=== PATIENT | female | born 1945 | race Caucasian/White ===

== ENCOUNTER 2022-04-14 16:33 | Observation (INO) | payer MEDICARE, SELFPAY ==
[2022-04-14] VITALS (13 sets, daily range): BP systolic 135–218; BP diastolic 77–125; PULSE 63–91; RESP 16–18; TEMP 36.3–36.7; O2SAT 93–98
--- NOTE | 2022-04-14 17:03 | ECG_ITS ---
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 Measurements Intervals [place] Rate: 85 P: 43 ND: 204 QRS: 75 QRSD: 93 T: 46 QT: 371 QTc: 442 Interpretive Statements SINUS RHYTHM POSSIBLE ANTERIOR MYOCARDIAL INFARCTION , PROBABLY OLD [30 ms Q WAVE IN V3/V4, OR R < 0.2 mV IN V4] INTERPRETATION BASED ON A DEFAULT AGE OF 40 YEARS No previous ECG available for comparison Electronically Signed On 04-15-2022 12:01:59 AIR BATTLE MANAGER by Enedelia Joe M.D. [id number]
--- NOTE | 2022-04-14 17:26 | ED_ITS ---
HPI - Chest Pain General: Chief Complaint: Chest Pain Stated Complaint: Abd pain Time Seen by Provider: 04/14/22 17:26 History of Present Illness: Ms Quarles is a 76-year-old lady with significant past medical history of htn, hld presenting to the emergency department due to abdominal and chest discomfort. She reports onset of abdominal discomfort primarily in the epigastric region a few days ago preceded by having to have a bowel movement after any p.o. intake. Since that time symptoms have persisted though. There is some radiation to the chest and neck. Intensity symptoms at worst is severe however currently mild. Worse with movement and ambulation. No other specific changes in health, exacerbating, or alleviating factors identified. Onset (ago): day(s) Timing of current episode: constant Prior episodes: No Onset: during rest Pain location: substernal Pain radiation: neck, jaw/teeth and other Severity: mild Exacerbating factors: movement and other Review of Systems General: Reports: 10 or more systems reviewed and unremarkable except in HPI and below PFSH ED PFSH: Medical History Abnormal nuclear stress test CAD (coronary artery disease) Chest pain Epigastric pain Family history of ischemic heart disease and other diseases of the circulatory system HTN (hypertension) Positive cardiac stress test Surgical History History of History of surgery on wrist Family History Other CAD (coronary artery disease) Social History Smoking and tobacco status: never smoked Alcohol intake: current Alcohol intake frequency: holidays/special occasions only Alcohol type: beer Physical Exam Const: COMMON NORMALS: alert GENERAL APPEARANCE: cooperative and well developed HENMT: COMMON NORMALS: normocephalic and atraumatic HEAD & SCALP: norm ocephalic and atraumatic Eye: COMMON NORMALS: conjunctivae normal CONJUNCTIVA: Yes conjunctivae normal SCLERA: sclerae normal Neck/C-Spine: COMMON NORMALS: supple GENERAL: Yes trachea midline Resp: COMMON NORMALS: clear to auscultation bilaterally EFFORT & INSPECTION: Yes able to speak in complete sentences AUSCULTATION: clear to auscultation bilaterally Cardio: COMMON NORMALS: regular rate and regular rhythm RATE: regular rate RHYTHM: regular rhythm GI: COMMON NORMALS: Soft to palpation PALPATION: Yes Soft to palpation, Yes Tenderness to palpation present (GI) Details: other, No Guarding due to palpation present (GI) and No Rigid due to palpation Extremity: GENERAL: Yes normal exam except as noted and No edema Neuro: COMMON NORMALS: moves all extremities SENSORIUM/ORIENTATION: Yes alert and No Orientation impaired Psych: COMMON NORMALS: mental status grossly normal and Normal thought process present THOUGHT PROCESS: Normal thought process present Course Vital Signs: Vital signs: Vital Signs Temperature 98.1 F 04/17/22 12:00 Pulse Rate 80 04/17/22 11:12 Respiratory Rate 23 H 04/17/22 12:00 Blood Pressure 135/58 04/17/22 12:00 Pulse Oximetry 94 04/17/22 11:12 Oxygen Delivery Me thod 04/17/22 11:09 MDM - Chest Pain Medical Decision Making 76-year-old lady presenting with epigastric first chest pain. Concerning radiation and new persistence. EKG shows sinus rhythm, AV block, nonspecific ST segment abnormalities, no STEMI. No leukocytosis and hemoglobin is normal. Unremarkable electrolyte panel. 2- hour delta troponin negative. Chest x-ray with no lobar consolidation or pneumothorax. CT abdomen and pelvis negative for acute pathology to explain symptoms. Patient given aspirin, GI cocktail, and medication for blood pressure without significant improvement. Patient is not low risk by heart score for chest pain. The results of ED evaluation were discussed with the patient including plan for admission due to requirement for level of care not available if discharged to prevent significant worsening/deterioration. Patient agreeable with plan. Discussed with hospitalist service who was agreeable to admit patient. Medical Records I reviewed the patient's medical records. Lab Data I reviewed the patient's lab results. : 04/17/22 04:32 04/17/22 04:32 Radiology Impressions Chest X-Ray 04/14/22 17:38 IMPRESSION: Emphysematous change, interstitial prominence, and right basilar airspace disease. Abdomen/Pelvis CT 04/14/22 18:10 IMPRESSION: 1. Negative for acute inflammatory process in the abdomen or pelvis. 2. Cardiomegaly. 3. Coronary artery atherosclerotic calcifications. 4. Several splenic cysts. 5. Bilateral renal cysts, negative for follow-up advised. 6. Cholelithiasis. 7. Constipation. COMMENTS: Consistent with the [place] [employer]'s Incidental Findings Committee white paper (J Am Kannan Radiol 2018): Any incidental renal lesion less than 1 cm or classified as too small to characterize, or any incidental cystic renal lesion characterized as simple-appearing, is likely benign. No follow-up imaging is recommended for these lesions per consensus recommendations based on imaging criteria. Gallbladder Ultrasound 04/15/22 08:00 Impression: 1. Cholelithiasis. 2. Simple right renal cyst. Laboratory Results WBC 6.7 10^3/uL (4.0-10.0) 04/14/22 17: RBC 4.03 10^6/uL (4.1-5.3) L 04/14/22 17: Hgb 12.4 g/dL (11.5-15.3) 04/14/22 17: Hct 38.2 % (37.0-47.0) 04/14/22 17: MCV 94.8 fl (81-99) 04/14/22 17: MCH 30.8 pg (28.0-34.0) 04/14/22 17:22 MCHC 32.5 g/dL (30.0-36.0) 04/14/22 17: RDW 12.3 % (12.1-15.1) 04/14/22 17: Plt Count 272 10^3/cmm (130-400) 04/14/22 17:22 MPV 9.4 fL (7.4-10.4) 04/14/22 17: Neut % (Auto) 65.3 % 04/14/22 17:22 Lymph % (Auto) 23.8 % 04/14/22 17:22 [place] % (Auto) 7.5 % 04/14/22 17:22 Eos % (Auto) 2.2 % 04/14/22 17: Baso % (Auto) 0.9 % 04/14/22 17:22 Neut # (Auto) 4.36 10^3/uL (1.8-7.7) 04/14/22 17:22 Lymph # (Auto) 1.6 10^3/uL (0.8-4.8) 04/14/22 17:22 [place] # (Auto) 0.5 10^3/uL (0.2-0.9) 04/14/22 17:22 Eos # (Auto) 0.2 10^3/uL (0.0-0.8) 04/14/22 17:22 Baso # (Auto) 0.1 10^3/uL (0.0-0.1) 04/14/22 17:22 Nucleated RBC % (auto) 0 % 04/14/22 17:22 Nucleated RBCs # 0.0 /100WBC 04/14/22 17:22 Sodium 136 mmol/L (136-145) 04/14/22 17:22 Potassium 4.1 mmol/L (3.5-5.1) 04/14/22 17:22 Chloride 102 mmol/L (98-107) 04/14/22 17:22 Carbon Dioxide 24 mmol/L (22-29) 04/14/22 17:22 Anion Gap 14.1 (5-19) 04/14/22 17:22 BUN 29 mg/dL (8-23) H 04/14/22 17:22 Creatinine 0.6 mg/dL (0.5-0.9) 04/14/22 17:22 GFR Calculation Not Reportable 04/14/22 17:22 Glucose 83 mg/dL (65-115) 04/14/22 17:22 Calculated Osmolality 287 mOsm/kg (285-295) 04/14/22 17:22 Lactic Acid 1.0 mmol/L (0.5-2.2) 04/14/22 17: Calcium 9.4 mg/dL (8.5-10.5) 04/14/22 17:22 Total Bilirubin 0.2 mg/dL (0.15-1.2) 04/14/22 17:22 AST 14 U/L (0-32) 04/14/22 17:22 ALT 11 U/L (0-33) 04/14/22 17:22 Alkaline Phosphatase 106 U/L (35-105) H 04/14/22 17:22 Troponin T Baseline 20 ng/L (0-10) H 04/14/22 17:22 Troponin T 120 Minute 22.00 ng/L (0-10) H 04/14/22 19:16 Delta Troponin T 2.00 ABS# (0-10) 04/14/22 19:16 Total Protein 7.4 g/dL (6.6-8.7) 04/14/22 17:22 Albumin 4.2 g/dL (3.5-5.2) 04/14/22 17:22 Globulin 3.2 g/dL (1.3-4.6) 04/14/22 17:22 Lipase 21 U/L (13-60) 04/14/22 17:22 Urine Color Yellow (Yellow) 04/14/22 19:00 Urine Appearance Clear (CLEAR) 04/14/22 19:00 Urine pH 5 (5-7) 04/14/22 19:00 Ur Specific [place] 1.020 (1.005-1.030) 04/14/22 19:00 Urine Protein Neg (Negative) 04/14/22 19:00 Urine Glucose (UA) Norm (Normal) 04/14/22 19:00 Urine Ketones Negative (Negative) 04/14/22 19:00 Urine Blood Neg (Negative) 04/14/22 19:00 Urine Nitrate Negative (Negative) 04/14/22 19:00 Urine Bilirubin Neg (Negative) 04/14/22 19:00 Urine Urobilinogen Norm mg/dL (Negative) 04/14/22 19:00 Ur Leukocyte Esterase Negative (Negative) 04/14/22 19:00 Discharge Plan Discharge Patient Disposition: Placed in Observation Admit Provider: Kalpesh George Clinical Impression: Chest pain Coding Level of Care Code ED Wireless Sales Representative for Trent Velazquez
[2022-04-14 17:37] LABS: Basophils # 0.1 10^3/uL (0.0-0.1); Basophils % 0.9 %; Eosinophils # 0.2 10^3/uL (0.0-0.8); Eosinophils % 2.2 %; Hematocrit 38.2 % (37.0-47.0); Hemoglobin 12.4 g/dL (11.5-15.3); Lymphocytes # 1.6 10^3/uL (0.8-4.8); Lymphocytes % 23.8 %; Mean Corpuscular HGB Conc 32.5 g/dL (30.0-36.0); Mean Corpuscular Hemoglobin 30.8 pg (28.0-34.0); Mean Corpuscular Volume 94.8 fl (81-99); Mean Platelet Volume 9.4 fL (7.4-10.4); Monocytes # 0.5 10^3/uL (0.2-0.9); Monocytes % 7.5 %; Neutrophils # 4.36 10^3/uL (1.8-7.7); Neutrophils % 65.3 %; Nucleated Red Blood Cells % 0 %; Platelet Count 272 10^3/cmm (130-400); Red Blood Count 4.03 10^6/uL (4.1-5.3); Red Cell Distribution Width 12.3 % (12.1-15.1); White Blood Count 6.7 10^3/uL (4.0-10.0)
--- NOTE | 2022-04-14 17:38 | XRR_ITS ---
PROCEDURE INFORMATION: Exam: XR Chest Exam date and time: 04/14/2022 6:55 PM Age: 76 years old Clinical indication: Angina pectoris; Patient HX: Pain under breast and goes up, 3 days abd pain; Additional info: Chest pain TECHNIQUE: Imaging protocol: Radiologic exam of the chest. Views: 1 view. COMPARISON: CT abdomen pelvis w con* [id number] 04/14/2022 6:35 PM FINDINGS: Lungs: Emphysematous change, interstitial prominence, and right basilar airspace disease. Pleural spaces: No significant pleural effusion. Heart/Mediastinum: Cardiac silhouette accentuated by epicardial fat. Bones/joints: Osteopenia and degenerative change. XR/XR chest 1V portable [id number] IMPRESSION: Emphysematous change, interstitial prominence, and right basilar airspace disease.
[2022-04-14 18:06] LABS: Troponin(5th) Baseline 20 ng/L (0-10)
[2022-04-14 18:08] LABS: Alanine Aminotransferase 11 U/L (0-33); Albumin Level 4.2 g/dL (3.5-5.2); Alkaline Phosphatase 106 U/L (35-105); Anion Gap 14.1 (5-19); Aspartate Amino Transferase 14 U/L (0-32); Blood Urea Nitrogen 29 mg/dL (8-23); Calcium 9.4 mg/dL (8.5-10.5); Carbon Dioxide 24 mmol/L (22-29); Chloride 102 mmol/L (98-107); Globulin 3.2 g/dL (1.3-4.6); Glucose 83 mg/dL (65-115); Lipase 21 U/L (13-60); Osmolality Calculated 287 mOsm/kg (285-295); Potassium 4.1 mmol/L (3.5-5.1); Sodium 136 mmol/L (136-145); Total Bilirubin 0.2 mg/dL (0.15-1.2); Total Protein 7.4 g/dL (6.6-8.7)
--- NOTE | 2022-04-14 18:10 | CTR_ITS ---
PROCEDURE INFORMATION: Exam: CT Abdomen And Pelvis With Contrast Exam date and time: 04/14/2022 6:35 PM Age: 76 years old Clinical indication: Abdominal pain; Epigastric; Prior surgery; Surgery type: C section; Additional info: Epigastric and ruq pain TECHNIQUE: Imaging protocol: Computed tomography of the abdomen and pelvis with contrast. Radiation optimization: All CT scans at this facility use at least one of these dose optimization techniques: automated exposure control; mA and/or kV adjustment per patient size (includes targeted exams where dose is matched to clinical indication); or iterative reconstruction. Contrast material: OMNI 350; Contrast volume: 100 ml; Contrast route: INTRAVENOUS (IV); COMPARISON: No relevant prior studies available. RADIATION DOSE METRICS: Total DLP (mGy-cm): 389.31 FINDINGS: Heart: Cardiomegaly. Coronary artery atherosclerotic calcifications. Liver: Normal. No mass. Gallbladder and bile ducts: Cholelithiasis. Pancreas: Normal. No ductal dilation. Spleen: Several splenic cysts. Adrenal glands: Normal. No mass. Kidneys and ureters: Bilateral renal cysts, negative for follow-up advised. Stomach and bowel: Constipation. Appendix: No evidence of appendicitis. Intraperitoneal space: Unremarkable. No free air. No significant fluid collection. Vasculature: Unremarkable. No abdominal aortic aneurysm. Lymph nodes: Unremarkable. No enlarged lymph nodes. Urinary bladder: Unremarkable as visualized. Reproductive: Unremarkable as visualized. Bones/joints: Unremarkable. No acute fracture. Soft tissues: Unremarkable. CT/CT abdomen pelvis w con* [id number] IMPRESSION: 1. Negative for acute inflammatory process in the abdomen or pelvis. 2. Cardiomegaly. 3. Coronary artery atherosclerotic calcifications. 4. Several splenic cysts. 5. Bilateral renal cysts, negative for follow-up advised. 6. Cholelithiasis. 7. Constipation. COMMENTS: Consistent with the [employer]'s Incidental Findings Committee white paper (J Am Kannan Radiol 2018): Any incidental renal lesion less than 1 cm or classified as too small to characterize, or any incidental cystic renal lesion characterized as simple-appearing, is likely benign. No follow-up imaging is recommended for these lesions per consensus recommendations based on imaging criteria.
[2022-04-14] MEDS: iohexol 350 mg/mL 500 mL Btl (per mL) IV (18:42)
[2022-04-14] MEDS: aspirin 81 mg Chew Tablet 324 MG PO (19:12)
[2022-04-14] MEDS: lidocaine 2% viscous 15 ML, aluminum-mag hydrox-simethicon 30 ML, sucralfate oral liq 1 GM PO (19:13)
[2022-04-14] MEDS: labetalol 5 mg/mL SDV 20mL 20 MG IVP (19:40)
[2022-04-14 19:50] LABS: Add Urine Microscopic? NO; Charge for UA Resulting for Rev
[2022-04-14 20:35] LABS: Bilirubin Urine Neg (Negative); Blood Urine Neg (Negative); Glucose Urine UA Norm (Normal); Ketones Urine Negative (Negative); Leukocyte Esterase Urine Negative (Negative); Nitrate Urine Negative (Negative); Protein Urine Neg (Negative); Urine Appearance Clear (CLEAR); Urine Color Yellow (Yellow); Urobilinogen Urine Norm (Negative); pH Urine 5 (5-7)
--- NOTE | 2022-04-14 21:04 | P.HP_ITS ---
Providers/Chief Complaint Primary Care Provider: Citlali Elizabeth DO Chief Complaint: Abd pain History of Present Illness Pleasant 76-year-old lady with history of hypertension, family history of CAD, came to ER for evaluation of epigastric pain she has had for the past 3 days or so which came on mostly unprovoked, but she has been getting it when walking. Came in to be assessed. Denies any radiation. Pain is alleviated at rest, although today did not entirely go away with rest. In the ER she was noted hypertensive initially up to 218/125. Received labetalol, GI cocktail, aspirin. Blood pressure improved, currently 135/77. CBC, CMP otherwise unremarkable, although BUN mildly high at 29. Alk phos minimally elevated 106. EKG with sinus rhythm. Baseline troponin 20, troponin 22. Lipase 21. UA unremarkable. She denies any NSAID use. She has occasional beer once in a while, no EtOH on daily basis. CT abdomen pelvis with cardiomegaly, several splenic cysts. Bilateral renal cysts, negative for follow-up advised. Cholelithiasis. Constipation. She denies constipation, states she has had 2 soft to loose bowel movements today. She has been having nausea which has been triggered by episodes of the epigastric pain. Observation was requested for completion of cardiac work-up to exclude cardiac etiology and optimization of control of her pain. Review of Systems Const: Denies: fever(s), chills, body aches or malaise Eyes: Denies: change in vision, eye discomfort or eye redness ENMT: Denies: throat pain, oral sores or ear or mastoid pain Card: Denies: chest pain, edema, pre-syncope or dyspnea on exertion Resp: Denies: dyspnea, productive cough, change in phlegm color or hemoptysis GI: Reports: abdominal pain and nausea; Denies: vomiting, constipation, hematochezia or melena : Denies: flank pain, urinary frequency or hematuria Musc: Denies: back pain, joint swelling or joint redness Skin/Breast: Denies: rash or new lesions Neuro: Denies: headache(s), numbness in extremities, weakness in extremities, dizziness, confusion or seizure-like activity Endo: Denies: polyuria or polydipsia Scotty/Lymph: Denies: easy bleeding or tender lymph nodes All/Imm: Denies: urticaria or tongue swelling Medications/Allergies Home Medications Medication Instructions Recorded Confirmed Last Taken Type bupropion HCl 300 mg 24 hr tablet, 300 mg PO DAILY 04/14/22 04/14/22 04/14/22 History extended release Allergies Allergy/AdvReac Type Severity Reaction Status Date / Time No Known Allergies Allergy Verified 04/14/22 17:25 PFSH Acute PFSH: Medical History HTN (hypertension) Surgical History History of History of surgery on wrist Family History Other CAD (coronary artery disease) Social History Smoking and tobacco status: never smoked Alcohol intake: current Alcohol intake frequency: holidays/special occasions only Alcohol type: beer Substance/Drug Use: never Vitals/I&O/Wt Last Vital Signs Temp 97.9 F 04/14/22 18:08 Pulse 71 04/14/22 21:01 Resp 17 04/14/22 21:01 BP 156/89 04/14/22 21:01 Pulse Ox 93 04/14/22 21:01 Weight last 48 hrs Weight 54.431 kg Physical Exam Narrative: Accompanied by family Const: COMMON NORMALS: patient oriented x3 and alert GENERAL APPEARANCE: cooperative ORIENTATION/CONSCIOUSNESS: Yes awake HENMT: COMMON NORMALS: oropharynx normal Neck/C-Spine: COMMON NORMALS: no JVD Resp: COMMON NORMALS: normal respiratory effort and clear to auscultation bilaterally AUSCULTATION: clear to auscultation bilaterally Cardio: COMMON NORMALS: no JVD, regular rhythm, S1 normal heart sound present, S2 normal heart sound present and No murmurs present (Cardio) RHYTHM: regular rhythm HEART SOUNDS: S1 normal heart sound present and S2 normal heart sound present GI: COMMON NORMALS: Normal to inspection, nondistended, normoactive bowel sounds present and Soft to palpation PALPATION: Yes Soft to palpation and Yes Tenderness to palpation present (GI) Details: other (Epigastric, RUQ) Extremity: COMMON NORMALS: no joint enlargement and no pedal edema Neuro: COMMON NORMALS: patient oriented x3 and moves all extremities SENSORIUM/ORIENTATION: Yes alert Skin: COMMON NORMALS: no rashes or lesions noted GENERAL SKIN EXAM: no rashes or lesions noted Data : 04/14/22 17:22 04/14/22 17:22 A&P Assessment and plan (1) Epigastric pain: With exertional component, epigastric pain getting worse with walking. Accompanied by nausea. With history of hypertension in her and history of CAD in the family, atherosclerotic calcifications, cardiomegaly on CT, concern in ER was to exclude cardiac etiology of the pain. Complete troponin EKG series. Assess with TTE. Stress test tomorrow. However, discussed with her other possible etiologies including PUD. Does also have noted tenderness in right upper quadrant, as well as some cholelithiasis noted on CT. Has never had an EGD, at some point would benefit, possibly with referral after discharge. Occasionally has some alcohol. Does not take NSAIDs. Never smoker. In the meantime discussed with her starting PPI. Additionally will assess with gallbladder ultrasound. She would like to try some liquid diet/ice cream tonight. Discussed with her to avoid caffeine. N.p.o. after midnight for stress test tomorrow. Plan Cardiomegaly: Incidentally noted on CT. Does not have symptoms of heart failure. Assess with TTE. Coronary artery atherosclerotic calcifications: Also incidentally on CT. Several splenic cyst: Incidentally noted on CT. Bilateral renal cysts: Incidentally noted on CT. Should follow-up after disch arge for reassessment. Constipation: Reported, however, she denies, states has been having soft/loose bowel movements including had 2 soft/semiliquid bowel movements today. Consider adding fiber once he resumes oral intake. Monitor for further changes in bowel consistency. Attestations Medical Necessity Statement*: Place in observation for further assessment and management of epigastric pain and lady with cardiac risk factors. Coding Level of Care Code Acute Family Consumer Scientist for Chg Fwd Diagnoses Epigastric pain R10.13
--- NOTE | 2022-04-14 21:32 | PC.NURSE ---
Report called to HAIDER Dalton on the floor and patient prepared for transport to the floor.
[2022-04-14] MEDS: pantoprazole DR 40 mg Tablet PO (22:20)
[2022-04-14 23:57] LABS: Troponin 5 6HR 30.54 ng/L (0-10)
[2022-04-15] VITALS (14 sets, daily range): BP systolic 105–187; BP diastolic 61–81; PULSE 63–89; RESP 16–18; TEMP 36.3–36.4; O2SAT 94–98
[2022-04-15 00:16] LABS: Troponin 5 6HR Delta 10.54 ng/L (0-12)
[2022-04-15] MEDS: sucralfate 1 gm/10 mL Oral Liq UDC PO ×4 (04:19→23:38)
[2022-04-15] MEDS: nitroglycerin 0.4 mg sublingual Tablet SUBLINGUAL (04:19)
[2022-04-15] MEDS: HYDROmorphone 1 mg/mL INJ 1 mL 0.4 MG IVP ×3 (04:35→23:08)
--- NOTE | 2022-04-15 04:38 | PC.NURSE ---
Pain: Pt woke c/o pain pointing to the epigastric area, rating it 10/10. Non-radiating, no SOB, BP 182/80 but other VS WNL. Physician notified and orders received. Carafate given, nitro given X1 - pain reduced to a 5/10 and BP recheck showed 123/73. Dilaudid given and pt said pain went away completely, now rating it 0/10.
[2022-04-15 05:28] LABS: Basophils # 0.1 10^3/uL (0.0-0.1); Basophils % 0.6 %; Eosinophils # 0.2 10^3/uL (0.0-0.8); Eosinophils % 1.9 %; Hematocrit 38.1 % (37.0-47.0); Hemoglobin 12.3 g/dL (11.5-15.3); Lymphocytes # 1.3 10^3/uL (0.8-4.8); Lymphocytes % 16.5 %; Mean Corpuscular HGB Conc 32.3 g/dL (30.0-36.0); Mean Corpuscular Hemoglobin 30.4 pg (28.0-34.0); Mean Corpuscular Volume 94.3 fl (81-99); Mean Platelet Volume 10.2 fL (7.4-10.4); Monocytes # 0.5 10^3/uL (0.2-0.9); Monocytes % 6.4 %; Neutrophils # 5.77 10^3/uL (1.8-7.7); Neutrophils % 74.1 %; Nucleated Red Blood Cells % 0 %; Platelet Count 233 10^3/cmm (130-400); Red Blood Count 4.04 10^6/uL (4.1-5.3); Red Cell Distribution Width 12.4 % (12.1-15.1); White Blood Count 7.8 10^3/uL (4.0-10.0)
[2022-04-15 05:54] LABS: Alanine Aminotransferase 10 U/L (0-33); Albumin Level 4.3 g/dL (3.5-5.2); Alkaline Phosphatase 97 U/L (35-105); Aspartate Amino Transferase 13 U/L (0-32); Blood Urea Nitrogen 23 mg/dL (8-23); Calcium 9.1 mg/dL (8.5-10.5); Carbon Dioxide 25 mmol/L (22-29); Chloride 101 mmol/L (98-107); Globulin 3.1 g/dL (1.3-4.6); Glucose 88 mg/dL (65-115); Osmolality Calculated 287 mOsm/kg (285-295); Sodium 137 mmol/L (136-145); Total Bilirubin 0.3 mg/dL (0.15-1.2); Total Protein 7.4 g/dL (6.6-8.7)
[2022-04-15 06:22] LABS: Anion Gap 14.5 (5-19); Potassium 3.5 mmol/L (3.5-5.1)
--- NOTE | 2022-04-15 06:24 | ECG_ITS ---
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 Interpretive Statements NAME OF STUDY: LEXISCAN SESTAMIBI STRESS TEST INDICATION: EPIGASTRIC PAIN/CAD RISK FACTORS, PROCEDURE: At the baseline, the EKG revealed normal sinus rhythm with poor R wave progression. Nonspecific T wave changes. Possible old inferior wall LA. The baseline heart was 76 bpm with a blood pressue of 146/74 mm of Hg Lexiscan was infused over a period of 20 seconds. A total of 0.4 milligrams of Lexiscan was infused. The stress phase was continued for a total of 5 minutes. Heart rate at the end of the stress phase was 94 bpm with a blood pressure 137/81 mm of Hg. The EKG at the peak infusion revealed no significant changes. Sestamibi was injected 20 seconds after the Lexiscan infusion. Heart rate at the end of the recovery phase was 90 bpm with a blood pressure of 126/81 mm of Hg. CONCLUSION: 1. No significant EKG changes with the LexiScan infusion 2. No LexiScan induced chest pain or cardiac arrhythmia 3. Normal blood pressure and heart rate response 4. Sestamibi/sestamibi perfusion scan pending; see separate report. Electronically Signed On 04-18-2022 8:54:12 TEACHER EDUCATION DIRECTOR by Char Mejia M.D. [id number]
[2022-04-15] MEDS: regadenoson 0.4 Mg/5 ml Syringe IVP (07:24)
[2022-04-15] MEDS: ondansetron 2 mg/ML SDV 2 mL 4 MG IVP (07:47)
--- NOTE | 2022-04-15 08:00 | US_ITS ---
WS: [id number] Gallbladder and right upper quadrant ultrasound, 04/15/2022 Clinical Data: epigastric, RUQ tender, cholelithiasis Comparison: None. Findings: The gallbladder shows two stones. The wall measures 0.2 cm with no pericholecystic fluid. The common bile duct is 0.3 cm and there are no intrahepatic ductal abnormalities. Liver shows no cysts, masses or dilated intrahepatic ducts. The pancreas is obscured by overlying bowel gas but no cyst, pseudocyst, or evidence of pancreatitis is noted. Right kidney measures 9.7 cm and there is a simple cyst measuring 2.27 x 2.57 x 2.66 cm. No masses or hydronephrosis can be seen The aorta and inferior vena cava show no vascular abnormalities. US/US gall bladder [id number] Impression: 1. Cholelithiasis. 2. Simple right renal cyst.
--- NOTE | 2022-04-15 08:00 | USCV_ITS ---
Stella Quarles Age: 76 Gender: F : 1945 Exam Date: 04/15/2022 08:42 Ordering Phys: Kalpesh George MD Technologist: CORY Exam Location: [facility] – [place], [place] Indication: CARDIOMEGALY BP: 123 / 73 HR: 68 Rhythm: Sinus Technical Quality: Adequate MEASUREMENTS (Male / Female) Normal Values 2D ECHO LVOT Diameter 2.0 cm LV Ejection Fraction MOD 2C 61.0 % LV Ejection Fraction 2C AL 61.2 % LA Diameter 3.1 cm LA Width 2.9 cm LA Height 4.9 cm RA Width 2.9 cm RA Height 4.6 cm Aorta at Sinotubular Diameter 1.8 cm IVC Diameter 0.8 cm M-MODE Aortic Annulus Diameter 3.5 cm LA Ao Ratio MM 0.9 MV E Point Septal Separation 0.4 cm DOPPLER AV Peak Velocity 94.0 cm/s LVOT Peak Velocity 90.0 cm/s AV Area Cont Eq vti 3.6 cm squared AV Area Cont Eq pk 3.1 cm squared MV Peak Velocity 126.0 cm/s MV Area PHT 2.8 cm squared Mitral E to A Ratio 0.7 MV E' Velocity 38.5 cm/s Mitral E to MV E' Ratio 14.0 Mitral E to LV E' Lateral Ratio 13.8 Mitral E to LV E' Septal Ratio 14.6 TR Peak Velocity 202.3 cm/s TR Peak Gradient 16.4 mmHg TR Mean Velocity 174.1 cm/s TR Mean Gradient 12.3 mmHg TR Velocity Time Integral 71.8 cm TV Peak E Velocity 44.0 cm/s Right Atrial Pressure 3.0 mmHg Pulmonary Artery Systolic Pressu 19.4 mmHg PV Peak Velocity 80.0 cm/s RV Acceleration Time 0.1 s RV Ejection Time 0.3 s RV AcT/ET 0.3 FINDINGS Left Ventricle Normal left ventricular size, systolic function and mildly increased wall thickness, with no regional wall motion abnormalities. Left ventricular ejection fraction is estimated at 70 %. Grade I diastolic dysfunction (abnormal relaxation filling pattern), normal to mildly elevated filling pressures. Right Ventricle Normal right ventricular size and systolic function. Right ventricular systolic pressure 19.4 mmHg. Right Atrium Normal right atrial size. Left Atrium Upper normal left atrial size. Mitral Valve Mild mitral annular calcification. Structurally normal mitral valve. No mitral valve stenosis. Mild mitral valve regurgitation. Aortic Valve Structurally normal trileaflet aortic valve. No aortic valve stenosis. Trace aortic valve regurgitation. Tricuspid Valve Structurally normal tricuspid valve. No tricuspid valve stenosis. Trace tricuspid valve regurgitation. Pulmonic Valve Structurally normal pulmonic valve. No pulmonary valve stenosis. Trace pulmonary valve regurgitation. Pericardium No pericardial effusion. Aorta Normal size aortic root and proximal ascending aorta. IVC Normal IVC dimension with >50% respiratory change of the inferior vena cava. CONCLUSIONS 1. Normal left ventricular size, systolic function and mildly increased wall thickness, with no regional wall motion abnormalities. Left ventricular ejection fraction is estimated at 70 %. Grade I diastolic dysfunction (abnormal relaxation filling pattern), normal to mildly elevated filling pressures. 2. Normal right ventricular size and systolic function. 3. Trace aortic valve regurgitation. 4. No prior similar studies to compare. Enedelia Joe MD (Electronically Signed) Final Date: 15 April 2022 17:18 S
--- NOTE | 2022-04-15 09:00 | NMCV_ITS ---
NM mary beth perf SPECT r/s* [id number] Stella Quarles Age: 76 Gender: F : 1945 Exam Date: 04/15/2022 06:52 Ordering Phys: Kalpesh George MD Technologist: TOMASZ Meade Exam Location: [facility] Indications: CHEST PAIN STRESS TEST Please see separate stress test report in [facility] for full findings IMAGE PROTOCOL Rest/Stress 1 Lexiscan Day Radiopharmaceutical Dose (mCi) Administration Site Administered by Rest: Tc-99m 10.4 IV TOMASZ Ramirez Sestamibi Stress:Tc-99m 32.5 IV TOMASZ Ramirez Sestamibi Rest: 15-Apr-2022 60 Discovery 630 Stress: 15-Apr-2022 30 Discovery 630 0.4mg Lexiscan. Images obtained in supine and prone position. SPECT RESULTS Technical Quality: Excellent Raw Data Analysis: Normal Image Corrections: No attenuation or motion correction applied Summed Stress Score: 10 Summed Rest Score: 3 Summed Difference Score: 7 PERFUSION FINDINGS Moderate area of moderately decreased tracer uptake in the proximal, mid and apical inferior, mid inferolateral and apical lateral regions. Significant reversibility was noted in these regions at rest.SPECT images demonstrate homogeneous tracer distribution throughout the myocardium. FUNCTIONAL RESULTS (calculated via Gated SPECT) Stress Image LV EF (%): 78 Stress EDV (mL):45 TID: 0.85 Stress ESV (mL):10 FUNCTIONAL FINDINGS: LV wall motion analysis revealing no gross wall motion abnormalities. IMPRESSIONS 1. Myocardial perfusion imaging revealing moderate area of moderately decreased tracer uptake in the inferior, inferolateral and apical regions with significant reversibility, suggesting ischemia , predominantly in the distribution of the right coronary artery with some involvement of the circumflex artery. 2. Normal LV ejection fraction of 78%. 3. LV wall motion analysis revealing no gross wall motion abnormalities. 4. Normal LV volume No similar previous studies are available for comparison Dr Char Mejia MD FAC (Electronically Signed) Final Date: 15 April 2022 12:30 S
[2022-04-15] MEDS: buPROPion XL (24 HR) 300 mg Tablet PO (09:50)
[2022-04-15] MEDS: amlodipine 5 mg Tablet PO (09:51)
[2022-04-15] MEDS: pantoprazole DR 40 mg Tablet PO (09:51)
--- NOTE | 2022-04-15 11:55 | PC.CHAP ---
Pastoral Care Encounter/Spiritual Assessment Type of Contact [] Declined circular knife cutter machine visit [] Patient/Family/Request visit [] Outpatient visit [] Follow-up visit [] Physician referral [] Code/Alert [x] Routine visit [] Staff referral [] Actively dying [] Patient sleeping [] Family support [] [x] Out of room [] Palliative care [] [] Receiving care in room [] Pre-surgical visit [] Trauma [] Long length of stay [] ICU visit [] Other: Relational/Emotional Strength [] Patient feels connected with others/family/visitors/staff [] Distress [] Loneliness/isolation [] Abandonment Spirituality of Patient [] Person of Nicolasa [] Attends Samaritan of their [place] [] Believes in Prayer [] Reads Bible or Scientologist materials [] There are Spiritual issues to be addressed Country Director Interventions [] Prayer [] Active listening [] Non-anxious presence [] Spiritual/emotional support [] Crisis/trauma care [] Spiritual counseling [] Bereavement support [] Provided bereavement packet [] Provided Bible/devotional materials [] Provided toy/stuffed animal, coloring book to patient or family member [] Provided Communion [] Anointing/[place] [] Salvation [] Completed spiritual assessment [] Other: Impact on Illness or Injury [] Angry [] Fearful [] Anxious [] Often cries [] Exhaustion [] Unable to work [] Unable to attend hoahaoism [] Unable to walk/stand [] Unable to read [] Unable to drive [] Unable to eat/drink [] Unable to sleep [] Unable to be with family [] Patient intubated [] Other: Summary Time spent with patient
--- NOTE | 2022-04-15 14:13 | PM.PN ---
Subjective Subjective: Positive stress test, asymptomatic, eating low-fat diet, Dr. White consulted Patient is stating her family lives [address] away and she has allowed me to talk to her sister Vitals/I&O/Wt Last Vital Signs Temp 97.4 F L 04/15/22 08:00 Pulse 68 04/15/22 11:45 Resp 16 04/15/22 11:45 BP 131/67 04/15/22 11:45 Pulse Ox 97 04/15/22 11:45 O2 Del Method 04/15/22 11:45 04/14/22 04/15/22 04/15/22 22:59 06:59 14:59 Intake Total 480 / 480 500 / 980 Output Total 300 / 300 Balance 480 / 480 200 / 680 Weight last 48 hrs Weight 54.431 kg Physical Exam Narrative: Awake and alert S1, S2 Abdomen soft Looks euvolemic No right upper quadrant tenderness Currently on room air Anxious appearing Data : 04/15/22 05:16 04/15/22 05:16 A&P Assessment and plan (1) Epigastric pain: (2) Chest pain: (3) Positive cardiac stress test: Plan Dr. White consulted for positive stress test Currently asymptomatic Hemodynamically stable Blood pressure has improved Will need optimization of antihypertensive regimen Patient has multiple risk factors for coronary disease such as family history, smoking, We will keep her n.p.o. 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 after midnight We will follow-up with cardiology recommendations Full code Positive gallstones, Pollack sign negative, that is why I have recommended low-fat diet, 12 weeks after her angiogram she might need elective gallbladder surgery Attestations Medical Necessity Statement*: Continue medical management Time Spent in Patient Care: 30 Coding Level of Care Code Acute Real Estate Site Analyst for Chg Fwd Diagnoses Epigastric pain R10.13 Chest pain R07.9 Positive cardiac stress test R94.39
--- NOTE | 2022-04-15 16:20 | PM.CONSULT ---
Providers/Reason For Consult Consulting Physician/Specialty*: Dr. Joe, Cardiology Reason for Consult*: Abnormal stress test Attending Physician: Patrizia Lo MD Primary Care Provider: Citlali Elizabeth DO History of Present Illness History of Present Illness Stella Quarles is a 76 year old female with past medical history of hypertension, former smoker (used natural cigarettes 2-3 /day on and off over years and quit 3 years back), family history of heart problems (sister in her 70's with massive NV and , mother with CHF and father with multiple stents starting in his early 70's) and anxiety/depression. She came to ER for evaluation of epigastric/ right UQ pain for the past 3 days starting out after eating described as deep ache and then with some radiation to right side of her chest and recently she has been getting it when walking as well.? Pain is relieved with resting after 15-20 minutes. EKG with sinus rhythm with poor anterior R wave progression.? Baseline troponin 20, troponin [address] abdomen pelvis with cardiomegaly, several splenic cysts.? Bilateral renal cysts and ?cholelithiasis.? She underwent stress test that showed moderate area of moderately decreased tracer uptake in the inferior, inferolateral and apical regions with significant reversibility, suggesting ischemia , predominantly in the distribution of the right coronary artery with some involvement of the ?circumflex artery. Review of Systems Const: Denies: fever(s), chills, body aches or malaise Eyes: Denies: change in vision, eye discomfort or eye redness ENMT: Denies: throat pain, oral sores or ear or mastoid pain Card: Reports: chest pain (atypical); Denies: edema, pre-syncope or dyspnea on exertion Resp: Denies: dyspnea, productive cough, change in phlegm color or hemoptysis GI: Reports: abdominal pain (epigastric/RUQ) and nausea; Denies: vomiting, constipation, hematochezia or melena : Denies: flank pain, urinary frequency or hematuria Musc: Denies: back pain, joint swelling or joint redness Skin/Breast: Denies: rash or new lesions Neuro: Denies: headache(s), numbness in extremities, weakness in extremities, dizziness, confusion or seizure-like activity Endo: Denies: polyuria or polydipsia Scotty/Lymph: Denies: easy bleeding or tender lymph nodes All/Imm: Denies: urticaria or tongue swelling Medications/Allergies Home Medications Medication Instructions Recorded Confirmed Last Taken Type bupropion HCl 300 mg 24 hr tablet, 300 mg PO DAILY 04/14/22 04/14/22 04/14/22 History extended release Allergies Allergy/AdvReac Type Severity Reaction Status Date / Time No Known Allergies Allergy Verified 04/14/22 17:25 Current Medications Generic Name Dose Route Start Last Admin Trade Name Freq PRN Reason Stop Dose Admin Amlodipine Besylate 5 mg 04/15/22 09:00 04/15/22 09:51 Amlodipine 5 Mg Tablet PO 5 mg DAILY LOR Administration Bupropion HCl 300 mg 04/15/22 09:00 04/15/22 09:50 Bupropion Xl (24 Hr) 300 Mg Tablet PO 300 mg DAILY LOR Administration Hydromorphone HCl 0.4 mg 04/15/22 04:06 04/15/22 10:36 Hydromorphone 1 Mg/Ml Inj 1 Ml IVP 0.4 mg Q4H PRN Administration PAIN Nitroglycerin 0.4 mg 04/15/22 04:06 04/15/22 04:19 Nitroglycerin 0.4 Mg Sublingual Tablet SUBLINGUAL 0.4 mg Q5M PRN Administration CHEST PAIN Ondansetron HCl 4 mg 04/15/22 06:26 04/15/22 07:47 Ondansetron 2 Mg/Ml Sdv 2 Ml IVP 4 mg Q2M PRN Administration NAUSEA Pantoprazole Sodium 40 mg 04/14/22 21:48 04/15/22 09:[address] 40 Mg Tablet PO 40 mg DAILY LOR Administration Sucralfate 1 gm 04/15/22 04:10 04/15/22 09:50 Sucralfate 1 Gm/10 Ml Oral Liq Udc PO 1 gm AC&BEDTIME LOR Administration PFSH Acute PFSH: Medical History (Updated 04/15/22 @ 21:08 by Enedelia Joe MD) Family history of ischemic heart disease and other diseases of the circulatory system HTN (hypertension) Surgical History History of History of surgery on wrist Family History Other CAD (coronary artery disease) Social History Smoking and tobacco status: never smoked Alcohol intake: current Alcohol intake frequency: holidays/special occasions only Alcohol type: beer Substance/Drug Use: never Vitals/I&O/Wt Last Vital Signs Temp 97.4 F L 04/15/22 15:47 Pulse 74 04/15/22 15:47 Resp 16 04/15/22 15:47 BP 170/73 04/15/22 15:47 Pulse Ox 98 04/15/22 15:47 O2 Del Method 04/15/22 15:47 04/15/22 04/15/22 04/15/22 06:59 14:59 22:59 Intake Total 500 / 980 Output Total 300 / 300 Balance 200 / 680 Weight last 48 hrs Weight 120 lb Physical Exam Narrative: GENERAL: Averagely built and averagely nourished in no acute distress HEENT: Extraocular movement intact. No pallor or icterus. NECK: central trachea, No JVD, No carotid bruit. CARDIOVASCULAR SYSTEM: S1-S2 regular. No murmur rubs or gallops. RESPIRATORY SYSTEM: Chest clear to auscultation. No wheezes rhonchi or rubs heard. No use of accessory muscles. ABDOMEN: Soft, nontender and nondistended. Normal bowel sounds present. No hepatosplenomegaly appreciated. EXTREMITIES: No cyanosis or clubbing or edema. No signs of chronic venous insufficiency. FIELD CANE SCALER: Patient is alert oriented ?3. No focal neurological deficits. Cranial nerves intact. SKIN: Normal turgor and temperature. No breakdown, rash or nail changes noted. PSYCH: Normal insight and judgment. No suicidal or homicidal ideations. Anxiety+ Data : 04/15/22 05:16 04/15/22 05:16 Other data: TTE (04/15/22) CONCLUSIONS ?1. Normal left ventricular size, systolic function and mildly ?increased wall thickness, with no regional wall motion ?abnormalities. Left ventricular ejection fraction is estimated ?at 70 %. Grade I diastolic dysfunction (abnormal relaxation ?filling pattern), normal to mildly elevated filling pressures. ?2. Normal right ventricular size and systolic function. ?3. Trace aortic valve regurgitation. ?4. No prior similar studies to compare. Lexiscan sestamibi MPI (04/15/22) IMPRESSIONS ?1.? Myocardial perfusion imaging revealing moderate area of moderately ?decreased tracer uptake in the inferior, inferolateral and apical regions with ?significant reversibility, suggesting ischemia , predominantly in the ?distribution of the right coronary artery with some involvement of the ?circumflex artery. ?2.? Normal LV ejection fraction of 78%. ?3.? LV wall motion analysis revealing no gross wall motion abnormalities. ?4.? Normal LV volume ?No similar previous studies are available for comparison A&P Assessment and plan (1) Chest pain: Atypical chest pain (2) Abnormal nuclear stress test: I had a long discussion with patient about her stress test findings. Patient's sister at bedside as well. I offered her the option of medical management and LHC based on medical response vs LHC during this hospitalization. All patient's questions about the procedure, stent longevity, need for repeat stent, type of diet and lifestyle changes that will be needed were answered to the best of my ability Patient eventually decided to proceed with LHC as she is worried about a sudden heart attack and Risks and benefits were discussed with the patients. Alternate management options were discussed with the patient as well. Possible complications including risk of heart attack stroke and , coronary perforation, dissection, arrhythmia, cardiac tamponade in urgent CABG were discussed with the patient as well. -Plan is to proceed for the procedure at the earliest. Greater than 40 minutes spent talking to the patient and family at bed side (3) HTN (hypertension): BP better controlled (4) Family history of ischemic heart disease and other diseases of the circulatory system: Plan Former smoker Consult Attestations Time Spent in Patient Care: Greater than 35 minutes Coding Level of Care Code Acute Pricing Coordinator for Chg Fwd Diagnoses Chest pain R07.9 Abnormal nuclear stress test R94.39 HTN (hypertension) I10 Family history of ischemic heart disease and other diseases of the circulatory system Z82.49
[2022-04-15] MEDS: enoxaparin 40 mg/0.4 mL Syringe SUBCUT (17:16)
[2022-04-15] MEDS: lisinopril 10 mg Tablet PO (17:17)
--- NOTE | 2022-04-15 17:22 | PC.NURSE ---
Patient would like to add, Kylah Hill ( [facility]) [phone] and Taina Her @ [phone] and Alejo Hill [phone] to allow information on her chart
[2022-04-15] MEDS: oxyCODONE 5 mg IR Tab/Cap PO (19:45)
[2022-04-15] MEDS: aspirin 325 mg EC Tablet PO (23:38)
[2022-04-15] MEDS: atorvastatin 40 mg Tablet 20 MG PO (23:38)
[2022-04-15] MEDS: clopidogrel 300 mg Tablet PO (23:39)
[2022-04-16] VITALS (16 sets, daily range): BP systolic 103–122; BP diastolic 45–69; PULSE 67–81; RESP 14–20; TEMP 36.3–36.8; O2SAT 92–96
[2022-04-16 05:49] LABS: Basophils # 0.1 10^3/uL (0.0-0.1); Basophils % 1.1 %; Eosinophils # 0.1 10^3/uL (0.0-0.8); Eosinophils % 2.6 %; Hematocrit 36.4 % (37.0-47.0); Hemoglobin 11.6 g/dL (11.5-15.3); Lymphocytes # 1.7 10^3/uL (0.8-4.8); Mean Corpuscular HGB Conc 31.9 g/dL (30.0-36.0); Mean Corpuscular Hemoglobin 30.9 pg (28.0-34.0); Mean Corpuscular Volume 97.1 fl (81-99); Mean Platelet Volume 9.4 fL (7.4-10.4); Monocytes # 0.5 10^3/uL (0.2-0.9); Monocytes % 9.1 %; Neutrophils # 2.99 10^3/uL (1.8-7.7); Neutrophils % 55.6 %; Nucleated Red Blood Cells % 0 %; Platelet Count 238 10^3/cmm (130-400); Red Blood Count 3.75 10^6/uL (4.1-5.3); Red Cell Distribution Width 12.5 % (12.1-15.1); White Blood Count 5.4 10^3/uL (4.0-10.0)
[2022-04-16 06:24] LABS: Alanine Aminotransferase 10 U/L (0-33); Albumin Level 3.7 g/dL (3.5-5.2); Alkaline Phosphatase 84 U/L (35-105); Anion Gap 17.2 (5-19); Aspartate Amino Transferase 13 U/L (0-32); Blood Urea Nitrogen 25 mg/dL (8-23); Calcium 9.1 mg/dL (8.5-10.5); Carbon Dioxide 24 mmol/L (22-29); Chloride 104 mmol/L (98-107); Globulin 2.8 g/dL (1.3-4.6); Glucose 88 mg/dL (65-115); Osmolality Calculated 296 mOsm/kg (285-295); Potassium 4.2 mmol/L (3.5-5.1); Sodium 141 mmol/L (136-145); Total Bilirubin 0.2 mg/dL (0.15-1.2); Total Protein 6.5 g/dL (6.6-8.7)
[2022-04-16 06:25] LABS: Chol HDL Ratio 6.45 mg/dL (0.0-4.40); Cholesterol 284 mg/dL (0-200); HDL Cholesterol 44 mg/dL (60-100); LDL Cholesterol Calculated 202 mg/dL (50-129); LDL HDL Ratio 4.59 RATIO (0.00-3.22); Triglycerides 191 mg/dL (0-150)
--- NOTE | 2022-04-16 07:42 | PM.PN ---
Subjective Subjective: Patient underwent LHC today with YOGI placement to 99% distal RCA stenosis just before bifurcation to PDA and PLV branches Vitals/I&O/Wt Last Vital Signs Temp 97.8 F 04/16/22 04:00 Pulse 72 04/16/22 06:00 Resp 16 04/16/22 04:00 BP 118/65 04/16/22 04:00 Pulse Ox 93 04/16/22 04:00 O2 Del Method 04/16/22 04:00 04/15/22 04/16/22 04/16/22 22:59 06:59 14:59 Intake Total 120 / 120 Balance 120 / 120 Weight last 48 hrs Weight 120 lb Physical Exam Narrative: GENERAL: Averagely built and averagely nourished in no acute distress HEENT: Extraocular movement intact. No pallor or icterus. ASA 3, normal airway NECK: central trachea, No JVD, No carotid bruit. CARDIOVASCULAR SYSTEM: S1-S2 regular. No murmur rubs or gallops. RESPIRATORY SYSTEM: Chest clear to auscultation. No wheezes rhonchi or rubs heard. No use of accessory muscles. ABDOMEN: Soft, nontender and nondistended. Normal bowel sounds present. No hepatosplenomegaly appreciated. EXTREMITIES: No cyanosis or clubbing or edema. No signs of chronic venous insufficiency. RECRUITMENT ASSISTANT: Patient is alert oriented ?3. No focal neurological deficits. Cranial nerves intact. SKIN: Normal turgor and temperature. No breakdown, rash or nail changes noted. PSYCH: Normal insight and judgment. No suicidal or homicidal ideations. Anxiety+ Data : 04/16/22 05:31 04/16/22 05:31 A&P Assessment and plan (1) Chest pain: Atypical chest pain (2) Abnormal nuclear stress test: I had a long discussion with patient about her stress test findings. Patient's sister at bedside as well. I offered her the option of medical management and LHC based on medical response vs LHC during this hospitalization. All patient's questions about the procedure, stent longevity, need for repeat stent, type of diet and lifestyle changes that will be needed were answered to the best of my ability. Patient eventually decided to proceed with LHC as she is worried about a sudden heart attack and Risks and benefits were discussed with the patients. Alternate management options were discussed with the patient as well. Possible complications including risk of heart attack stroke and , coronary perforation, dissection, arrhythmia, cardiac tamponade in urgent CABG were discussed with the patient as well. -Plan is to proceed for the procedure at the earliest. Greater than 40 minutes spent talking to the patient and family at bed side (3) CAD (coronary artery disease): (4) HTN (hypertension): BP better controlled (5) Family history of ischemic heart disease and other diseases of the circulatory system: Plan Dyslipidemia Former smoker Attestations Medical Necessity Statement*: needs hospotal stay post LHC and stenting Coding Level of Care Code Acute Furniture Mechanic for g Fwd Diagnoses Chest pain R07.9 Abnormal nuclear stress test R94.39 CAD (coronary artery disease) I25.10 HTN (hypertension) I10 Family history of ischemic heart disease and other diseases of the circulatory system Z82.49
[2022-04-16] MEDS: sucralfate 1 gm/10 mL Oral Liq UDC PO ×4 (07:48→20:58)
[2022-04-16] MEDS: pantoprazole DR 40 mg Tablet PO (07:49)
[2022-04-16] MEDS: clopidogrel 75 mg Tablet PO (07:50)
[2022-04-16] MEDS: amlodipine 5 mg Tablet 7.5 MG PO (07:50)
[2022-04-16] MEDS: lisinopril 10 mg Tablet PO (07:51)
[2022-04-16] MEDS: aspirin 81 mg Chew Tablet PO (07:52)
[2022-04-16] MEDS: buPROPion XL (24 HR) 300 mg Tablet PO (07:55)
[2022-04-16] MEDS: sodium chloride 0.9% 1,000 ML 50 ML IV (10:12)
--- NOTE | 2022-04-16 10:44 | PM.PN ---
Subjective Subjective: She is going for cardiac catheterization today All questions were answered Her sister was also present in the room at the time of my evaluation No active chest pain patient is stating that this is her first day went she has gone to the bathroom without any active epigastric discomfort Vitals/I&O/Wt Last Vital Signs Temp 97.6 F 04/16/22 08:00 Pulse 76 04/16/22 08:00 Resp 18 04/16/22 08:00 BP 103/56 04/16/22 08:00 Pulse Ox 96 04/16/22 08:00 O2 Del Method 04/16/22 04:00 04/15/22 04/16/22 04/16/22 22:59 06:59 14:59 Intake Total 120 / 120 Balance 120 / 120 Weight last 48 hrs Weight 54.431 kg Physical Exam Narrative: Awake alert Currently laying supine S1, S2 Abdomen soft EOMI, PERRLA Currently on room air Sister at the bedside Abdomen soft Data : 04/16/22 05:31 04/16/22 05:31 A&P Assessment and plan (1) Family history of ischemic heart disease and other diseases of the circulatory system: (2) HTN (hypertension): (3) Abnormal nuclear stress test: (4) Positive cardiac stress test: (5) Epigastric pain: (6) Chest pain: Plan Patient is going for cardiac catheterization today No overnight events Hemodynamically stable Most likely she will be able to be discharged by tomorrow Full code Cardiac diet after her procedure today N.p.o. for now DVT prophylaxis covered with Lovenox For her hypertension I have added lisinopril, amlodipine, Attestations Medical Necessity Statement*: Continue medical management Time Spent in Patient Care: 30 Coding Level of Care Code Acute Lawnmower Mechanic for Chg Fwd Diagnoses Family history of ischemic heart disease and other diseases of the circulatory system Z82.49 HTN (hypertension) I10 Abnormal nuclear stress test R94.39 Positive cardiac stress test R94.39 Epigastric pain R10.13 Chest pain R07.9
[2022-04-16] MEDS: HYDROmorphone 1 mg/mL INJ 1 mL 0.4 MG IVP (11:34)
[2022-04-16] MEDS: enoxaparin 40 mg/0.4 mL Syringe SUBCUT (14:47)
--- NOTE | 2022-04-16 16:04 | PC.NURSE ---
pt to company laborer at approx. 1600
--- NOTE | 2022-04-16 16:30 | XACV_ITS ---
Exam Room: [facility] Ht: 151 cm Wt: 54 kg BSA: 1.52 m2 Gender: Female : 1945 Any Known Allergies: No known allergies Exam Priority: Routine Procedure(s): Procedure Description: Diagnostic procedure Procedure Description: PCI procedure Procedure Description: Drug Eluting Coronary Stent Procedure Description: PTCA Procedure Description: Coronary Angiography Diagnostic Cath Status: Elective Diagnostic Findings * Stella Quarles is a 76 year old female with past medical history of hypertension, former smoker (used natural cigarettes 2-3 /day on and off over years and quit 3 years back), family history of heart problems (sister in her 70's with massive [place] and , mother with CHF and father with multiple stents starting in his early 70's) and anxiety/depression. She came to ER for evaluation of epigastric/ right UQ pain after eating described as deep ache and then with some radiation to right side of her chest and recently she has been getting it when walking as well. Pain is relieved with resting after 15-20 minutes. EKG with sinus rhythm with poor anterior R wave progression. Baseline troponin 20, troponin 22 and 6 hr 31. She underwent stress test that showed moderate area of moderately decreased tracer uptake in the inferior, inferolateral and apical regions with significant reversibility, suggesting ischemia , predominantly in the distribution of the right coronary artery with some involvement of the circumflex artery. * Angiography shows a right coronary dominant system. * Normal left main without any disease that divides into left anterior descending artery, circumflex and ramus artery. * Proximal left anterior descending artery with moderate 50-60% stenosis. * Ramus artery without any disease. * Normal circumflex without any significant disease. * Dominant right coronary artery with minor luminal irregularities in mid right coronary artery. Distal RCA just before bifurcating into PDA and PLV branches with 95% stenosis. VINCE 3 flow. * Case was discussed and images were reviewed with Dr. Chapa. He took over the case at this time. PCI Status: Elective PCI LVEF Assessed: No PCI Indication: NSTE - ACS Interventional Findings * The right coronary artery exhibits an unusual takeoff. The guide did not seat well so there was little guide support. I was able to pass a wire to the posterior descending artery and performed balloon angioplasty of the distal right coronary artery lesion however initially the stent would not pass around a very tortuous acute margin. I then employed a guide liner and placed the guide liner as far down the artery as I could manage. Subsequently the stent was passed and deployed with adequate results. Patient had ST segment elevation during the initial balloon inflation. She was very restless and mildly combative during the procedure. Decision for PCI with Surgical Consult: No PCI for Multi-vessel Disease: No Conclusions 1. Cardiac Catheterization study revealed two vessel coronary artery disease. 2. Distal RCA with severe 95% stenosis underwent balloon angioplasty followed by drug eluting stent placement. Recommendations * Return to inpatient for close monitoring and routine cath care. * Statin and aspirin 81mg lifelong, if tolerated. * Continue Plavix 75mg p.o. daily for at least one year. Pressures Phase:Rest AO : 76 / 49 ( 63 ) @ 4:40:00 PM 102 / 56 ( 77 ) @ 5:03:00 PM 105 / 76 ( 90 ) @ 5:07:00 PM 113 / 60 ( 86 ) @ 5:08:00 PM Clinical Evaluation EBL: 5mL-10mL Procedural Details Pre-Procedure Time Out. Identified patient by full name and date of as verbalized by the patient/guarantor. Does the consent match the physician's order: Yes. Accurate & Complete Informed Consent: Yes. Inpatient/Outpatient History & Physical on Chart: Yes. If H&P is completed, is and addenduem needed: No; If yes, is the addendum complete: N/A. Visualize and Verify Site with Patient/Guarantor: N/A. Relevant Radiology Images available: Yes. Pre-op teaching completed and patient verbalized understanding. The risks, benefits, and alternatives of sedation and/or procedure were discussed by physician. The patient agrees to continue. Procedure started. [facility] Clinical Fraility Score: 3: Managing Well. Retail Salesman Indications: New Onset Angina/Abnormal stress test. Chest Pain Symptom Assessment: Atypical Angina. Cardiovascular Instability: No. Correct patient, site and procedure confirmed by cath team. PERRLA. Strong, equal hand mechanical engineering technician bilaterally. Lungs clear x 5 lobes. IV Site on Arrival: 20 gauge in the right anticubital. IV Site on Arrival: 20 gauge in the left anticubital. IV Fluids: 0.9% NaCl at KVO. 200 mL infused prior to rn cardiac cath. Pre Procedural Pulses: bilateral radial was 3+. Oxygen started at 2liters/min via nasal canula. right groin was prepped with chloroprep then draped in the usual sterile fashion. right radial was prepped with chloroprep then draped in the usual sterile fashion. Baseline sample Acquired. HR: 79 BPM. Physician notified. Patient's sister is in the label rewinder waiting room. Dr. Joe will update at the completion of the case. Equipment: 6F - Radial. Cardiac Cath Pack. ACIST Manifold Kit Model BT 2000. Heparinized Saline (2 units/mL), 1000 mL bag. Physician arrived. Physician scrubbed in. Immediate Pre-Procedure Time Out. Correct Patient: Yes; Correct Procedure: Yes; Correct Site: Yes; Correct Patient Position: Yes; Correct Supplies: Yes; Dried Flammable Prep: Yes; Blood Products Available: N/A;. Lidocaine 1% infiltrated to the right radial. Arterial access obtained. A 5 polish TIG catheter in over the exchange wire. Multiple views taken of left coronary artery. Catheter redirected to the RCA. Multiple views taken of right coronary artery. Catheter removed over the exchange wire. Dr. Chapa here to view cineography. Dr. Joe scrubbed out. Dr. Chapa scrubbed in to perform intervention. Patient's family updated by Dr. Joe. The sheath was attached to Heparinized Saline flush at KVO to maintain patency. 6 polish JR 4 guide catheter was inserted over the exchange wire. [place] guidewire was advanced through the guide catheter to lesion in the distal RCA. Inflation number : 1 A AB TREK 2.50X12 RX BALLOON was prepped and advanced across the Dist RCA , then inflated to 8 BO for 0:09 seconds. Inflation number: 2 The AB TREK 2.50X12 RX BALLOON was reinflated across the Dist RCA, to 8 BO for 0:23 seconds. Inflation number: 3 The AB TREK 2.50X12 RX BALLOON was reinflated across the Dist RCA, to 0 BO for 0:21 seconds. Balloon out. Results checked. [place] 2.75 x 12 stent in and unable to cross, removed intact. Guideliner in. Inflation Number : 4 A ADRIEN R JUAN LUIS 2.75X12 YOGI -Lot Number# [id number] was prepped and advanced across the Dist RCA. The stent was deployed at 12 BO for 0:30 seconds. Exp. 2024-05-08. Guideliner out. Stent balloon out over wire. Wire out. Guide catheter out. Dr. Chapa scrubbed out. A TR Band was successful obtaining hemostatsis at the Right Radial artery insertion site. TR band placed. Hemostasis obtained. Post Procedure: Pulses reassessed and unchanged. PERRLA. Strong, equal hand mechanical engineering technician bilaterally. No VTE prophylaxis required. Medication's Wasted: Lidocaine 1% = 2 mL. Medication's Wasted: Nitro = 49.25 mg. Medication's Wasted: Heparin = 1000 units. Total IV fluids: 125 mL. PCI Indication: CAD (without ischemic symptoms). Post-op diagnosis: PCI of the distal RCA. Complications: none. Estimated blood loss: 5mL-10mL. Responsiveness - Normal response to verbal stimuli; alert and oriented, PERRLA. Airway - Unaffected, no intervention required; spontaneous ventilation. Circulation: W/N/L, pulses unchanged. Nausea/Vomiting: No. Procedure completed. Patient transferred by wheelchair to 1st floor. Vital chart was stopped. Access Site Site: Right Radial artery Sheath Size: 6 Fr Hemostasis Method: TR Band Hemostasis Success: Successful Procedure Medications Start: 4:13 PM Stop: 4:13 PM Medication: Fentanyl Amount: 50 mcg Route: I.V. Start: 4:19 PM Stop: 4:19 PM Medication: Versed Amount: 1 mg Route: I.V. Start: 4:24 PM Stop: 4:24 PM Medication: Versed Amount: 0.5 mg Route: I.V. Start: 4:30 PM Stop: 4:30 PM Medication: Nitrogylcerin Amount: 50 mcg Route: S.Q. Start: 4:32 PM Stop: 4:32 PM Medication: Versed Amount: 0.5 mg Route: I.V. Start: 4:33 PM Stop: 4:33 PM Medication: Nitrogylcerin Amount: 200 mcg Route: I.A. Start: 4:34 PM Stop: 4:34 PM Medication: Fentanyl Amount: 25 mcg Route: I.V. Start: 4:35 PM Stop: 4:35 PM Medication: Versed Amount: 0.5 mg Route: I.V. Start: 4:36 PM Stop: 4:36 PM Medication: Versed Amount: 0.5 mg Route: I.V. Start: 4:38 PM Stop: 4:38 PM Medication: Fentanyl Amount: 25 mcg Route: I.V. Start: 4:40 PM Stop: 4:40 PM Medication: Nitrogylcerin Amount: 200 mcg Route: I.A. Start: 4:47 PM Stop: 4:47 PM Medication: Benadryl Amount: 50 mg Route: I.V. Start: 5:00 PM Stop: 5:00 PM Medication: Fentanyl Amount: 50 mcg Route: I.V. Start: 5:02 PM Stop: 5:02 PM Medication: Versed Amount: 0.5 mg Route: I.V. Start: 5:10 PM Stop: 5:10 PM Medication: Versed Amount: 0.5 mg Route: I.V. Start: 5:14 PM Stop: 5:14 PM Medication: Heparin Amount: 5000 units Route: I.V. Start: 5:17 PM Stop: 5:17 PM Medication: Fentanyl Amount: 25 mcg Route: I.V. Start: 5:18 PM Stop: 5:18 PM Medication: Versed Amount: 1 mg Route: I.V. Start: 5:20 PM Stop: 5:20 PM Medication: Fentanyl Amount: 25 mcg Route: I.V. Start: 5:22 PM Stop: 5:22 PM Medication: Nitrogylcerin Amount: 300 mcg Route: I.A. I, the attending physician, have reviewed and verified all procedure medications. Yes, all medications given per verbal order History/Risk Factors Hypertension: Yes Dyslipidemia: No Peripheral Arterial Disease (PAD): No Myocardial Infarction ([place]): No Obesity: No Renal Disease: No Tobacco Use: Never Prior Interventions PCI: No CABG: No Valve Surgery: No Report Signatures Diagnostic Workflow Finalized by Enedelia Joe MD on 04/24/2022 01:28 PM Interventional Workflow Finalized by Dr. Jorge Chapa MD on 04/16/2022 05:35 PM
--- NOTE | 2022-04-16 18:40 | PC.NURSE ---
received from cardiac prosthetics lab technician at 1750.report received.pt is drowsy but easily awakened.sr on monitor.bp stable.right radial arterial tr band on and inflated.right hand is warm to touch and with brisk capillary refill.no hematoma noted.palpable radial pulse noted distal to tr band.pt and visitor instructed in activity restrictions s/p radial artery procedure...and instructed to notify staff for any bleeding,pain,numbness or for any concerns at all.both verb understanding of instructions
[2022-04-16] MEDS: atorvastatin 40 mg Tablet 20 MG PO (20:57)
[2022-04-16] MEDS: oxyCODONE 5 mg IR Tab/Cap PO (22:41)
[2022-04-17] VITALS: BP 108/52; PULSE 85; RESP 18; TEMP 37.4; O2SAT 95
--- NOTE | 2022-04-17 02:15 | PC.NURSE ---
Received report from HAIDER Inman. Patient to the floor post cath around [address] band in [address]. Attempted to removed 2ml air from right radial band at 2030, small amount of bleeding noted immediatly after removed. 2ml placed back, with resolution. Distal pulse remained intact, without evidence of hematoma. 2129 attempted removal again of 2ml air, no evidence of bleeding at that time. 2ml of air then removed every 30 minutes until deflated. TR band deflated at 04/17/22 at 0030. TR band then removed, and small dressing placed. Distal pulse remains intact. Hand is warm to the touch with brisk capillary refill. No hematoma noted at the site.
[2022-04-17 04:00] VITALS: BP 111/54; PULSE 76; RESP 15; TEMP 36.9; O2SAT 95
[2022-04-17 05:23] LABS: Basophils % 0.7 %; Eosinophils # 0.1 10^3/uL (0.0-0.8); Eosinophils % 1.8 %; Hematocrit 34.2 % (37.0-47.0); Hemoglobin 11.1 g/dL (11.5-15.3); Lymphocytes # 1.4 10^3/uL (0.8-4.8); Lymphocytes % 25.5 %; Mean Corpuscular HGB Conc 32.5 g/dL (30.0-36.0); Mean Corpuscular Hemoglobin 31.1 pg (28.0-34.0); Mean Corpuscular Volume 95.8 fl (81-99); Mean Platelet Volume 9.6 fL (7.4-10.4); Monocytes # 0.4 10^3/uL (0.2-0.9); Monocytes % 6.9 %; Neutrophils # 3.56 10^3/uL (1.8-7.7); Neutrophils % 64.6 %; Nucleated Red Blood Cells % 0 %; Platelet Count 239 10^3/cmm (130-400); Red Blood Count 3.57 10^6/uL (4.1-5.3); Red Cell Distribution Width 12.3 % (12.1-15.1); White Blood Count 5.5 10^3/uL (4.0-10.0)
[2022-04-17 05:53] LABS: Alanine Aminotransferase 9 U/L (0-33); Albumin Level 3.7 g/dL (3.5-5.2); Alkaline Phosphatase 86 U/L (35-105); Anion Gap 12.7 (5-19); Aspartate Amino Transferase 14 U/L (0-32); Blood Urea Nitrogen 20 mg/dL (8-23); Calcium 8.5 mg/dL (8.5-10.5); Carbon Dioxide 24 mmol/L (22-29); Chloride 105 mmol/L (98-107); Globulin 2.6 g/dL (1.3-4.6); Glucose 82 mg/dL (65-115); Osmolality Calculated 288 mOsm/kg (285-295); Potassium 3.7 mmol/L (3.5-5.1); Sodium 138 mmol/L (136-145); Total Bilirubin 0.3 mg/dL (0.15-1.2); Total Protein 6.3 g/dL (6.6-8.7)
[2022-04-17 06:00] VITALS: PULSE 75
[2022-04-17] MEDS: sucralfate 1 gm/10 mL Oral Liq UDC PO (06:33)
[2022-04-17] MEDS: buPROPion XL (24 HR) 300 mg Tablet PO (09:14)
[2022-04-17] MEDS: aspirin 81 mg Chew Tablet PO (09:15)
[2022-04-17] MEDS: lisinopril 10 mg Tablet PO (09:15)
[2022-04-17] MEDS: amlodipine 5 mg Tablet 7.5 MG PO (09:15)
[2022-04-17] MEDS: clopidogrel 75 mg Tablet PO (09:19)
--- NOTE | 2022-04-17 09:44 | P.PN_ITS ---
Subjective Subjective: doing well post LHC Medications: Reviewed: Yes Vitals/I&O/Wt Last Vital Signs Temp 98.4 F 04/17/22 04:00 Pulse 75 04/17/22 06:00 Resp 15 04/17/22 04:00 BP 111/54 04/17/22 04:00 Pulse Ox 95 04/17/22 04:00 O2 Del Method 04/17/22 04:00 04/16/22 04/17/22 04/17/22 22:59 06:59 14:59 Intake Total 240 / 240 Balance 240 / 240 Physical Exam Narrative: GENERAL: Averagely built and averagely nourished in no acute distress HEENT: Extraocular movement intact. No pallor or icterus. ASA 3, normal airway NECK: central trachea, No JVD, No carotid bruit. CARDIOVASCULAR SYSTEM: S1-S2 regular. No murmur rubs or gallops. RESPIRATORY SYSTEM: Chest clear to auscultation. No wheezes rhonchi or rubs heard. No use of accessory muscles. ABDOMEN: Soft, nontender and nondistended. Normal bowel sounds present. No hepatosplenomegaly appreciated. EXTREMITIES: No cyanosis or clubbing or edema. No signs of chronic venous insufficiency.Right wrist with no bruising or hematoma PATIENT OMBUDSPERSON: Patient is alert oriented ?3. No focal neurological deficits. Cranial nerves intact. SKIN: Normal turgor and temperature. No breakdown, rash or nail changes noted. PSYCH: Normal insight and judgment. No suicidal or homicidal ideations. Anxiety+ Data : 04/17/22 04:32 04/17/22 04:32 A&P Assessment and plan (1) Chest pain: Atypical chest pain, resolved (2) Abnormal nuclear stress test: I had a long discussion with patient about her stress test findings. Patient's sister at bedside as well. I offered her the option of medical management and LHC based on medical response vs LHC during this hospitalization. All patient's questions about the procedure, stent longevity, need for repeat stent, type of diet and lifestyle changes that will be needed were answered to the best of my ability. Patient eventually decided to proceed with LHC as she is worried about a sudden heart attack and (3) CAD (coronary artery disease): s/p dRCA ballon angioplasty and YOGI placement -continue ASA, plavix, statin, NTG SL PRN on discharge (4) HTN (hypertension): BP better controlled -continue amlodipine (5) Family history of ischemic heart disease and other diseases of the circulatory system: Plan Dyslipidemia: f/u lipid panel in 3 months Former smoker Anxiety Attestations Medical Necessity Statement*: stable to be discharged home Time Spent in Patient Care: 16 - 35 minutes Coding Level of Care Code Acute Boiler/Chiller Technician for g Fwd Diagnoses Chest pain R07.9 Abnormal nuclear stress test R94.39 CAD (coronary artery disease) I25.10 HTN (hypertension) I10 Family history of ischemic heart disease and other diseases of the circulatory system Z82.49
--- NOTE | 2022-04-17 10:01 | P.DS_ITS ---
Discharge Providers Date of Admission: 04/14/22 21:15 Date of Discharge: April 17, 2022 Attending Provider at Admission: Kalpesh George Attending Provider at Discharge: Patrizia Lo MD Primary Care Provider: Citlali Elizabeth DO Diagnoses at Discharge Discharge Diagnosis (1) Chest pain: Status: Acute (2) Abnormal nuclear stress test: Status: Acute (3) CAD (coronary artery disease): Status: Acute (4) HTN (hypertension): Status: Acute (5) Family history of ischemic heart disease and other diseases of the circulatory system: Status: Acute Reason for Visit Reason for Visit: Abd pain Hospital Course Hospital Course 76-year female who was admitted for management of epigastric pain, gallstones were identified however her stress test came back positive with reversible defect, cardiology was consulted, patient went for left heart catheterization, a stent was placed in distal RCA by Dr. Chapa. She will be discharged on aspirin, Plavix atorvastatin and low-dose lisinopril. Her pressure has been normotensive throughout her hospitalization. Reluctant to add metoprolol succinate for now I will have her follow-up with cardiology to make that decision outpatient. EF is preserved patient is stating improvement in her symptoms. Patient is very anxious and emotional and required a lot of counseling before her procedure. Patient is stating that she was confused whether she had 1 versus 2 stents placed. I did review the report in her chart it states 1 stent in distal RCA which I have relayed to the patient. Patient is asking to talk with Dr. Best before her discharge. I have notified the CSU nurse. Physical Exam Narrative: S1, S2 Euvolemic Hemodynamic stable Currently on room air Abdomen soft Discharge Data Studies Completed and Pending Completed Studies During Hospitalization Category Date Time Status CT abdomen pelvis w con* [id number] Stat Cat Scan 04/14/22 18:10 Completed Cardiac Stress Test MIBI [Sestamibi Stress Test Request Exams 04/15/22 06:24 Draft ] Routine XR chest 1V portable [id number] Stat Exams 04/14/22 17:38 Completed NM mibi stress rest [NM mary beth perf SPECT r/s* [id number]] Nuc Med 04/15/22 09:00 Completed Routine CV. echo complete* [id number] Stat Ultrasound 04/15/22 08:00 Completed US gall bladder [id number] Stat Ultrasound 04/15/22 08:00 Completed Pending at discharge Category Date Time Status ROOMING HOUSE OPERATOR request for service Routine Exams 04/16/22 16:30 Taken Radiology Impressions Chest X-Ray 04/14/22 17:38 IMPRESSION: Emphysematous change, interstitial prominence, and right basilar airspace disease. Abdomen/Pelvis CT 04/14/22 18:10 IMPRESSION: 1. Negative for acute inflammatory process in the abdomen or pelvis. 2. Cardiomegaly. 3. Coronary artery atherosclerotic calcifications. 4. Several splenic cysts. 5. Bilateral renal cysts, negative for follow-up advised. 6. Cholelithiasis. 7. Constipation. COMMENTS: Consistent with the [employer]'s Incidental Findings Committee white paper (J Am Kannan Radiol 2018): Any incidental renal lesion less than 1 cm or classified as too small to characterize, or any incidental cystic renal lesion characterized as simple-appearing, is likely benign. No follow-up imaging is recommended for these lesions per consensus recommendations based on imaging criteria. Gallbladder Ultrasound 04/15/22 08:00 Impression: 1. Cholelithiasis. 2. Simple right renal cyst. Laboratory Results WBC 5.5 10^3/uL (4.0-10.0) 04/17/22 04:32 RBC 3.57 10^6/uL (4.1-5.3) L 04/17/22 04:32 Hgb 11.1 g/dL (11.5-15.3) L 04/17/22 04:32 Hct 34.2 % (37.0-47.0) L 04/17/22 04:32 MCV 95.8 fl (81-99) 04/17/22 04:32 MCH 31.1 pg (28.0-34.0) 04/17/22 04:32 MCHC 32.5 g/dL (30.0-36.0) 04/17/22 04:32 RDW 12.3 % (12.1-15.1) 04/17/22 04:32 Plt Count 239 10^3/cmm (130-400) 04/17/22 04:32 MPV 9.6 fL (7.4-10.4) 04/17/22 04:32 Neut % (Auto) 64.6 % 04/17/22 04:32 Lymph % (Auto) 25.5 % 04/17/22 04:32 [place] % (Auto) 6.9 % 04/17/22 04:32 Eos % (Auto) 1.8 % 04/17/22 04:32 Baso % (Auto) 0.7 % 04/17/22 04:32 Neut # (Auto) 3.56 10^3/uL (1.8-7.7) 04/17/22 04:32 Lymph # (Auto) 1.4 10^3/uL (0.8-4.8) 04/17/22 04:32 [place] # (Auto) 0.4 10^3/uL (0.2-0.9) 04/17/22 04:32 Eos # (Auto) 0.1 10^3/uL (0.0-0.8) 04/17/22 04:32 Baso # (Auto) 0.0 10^3/uL (0.0-0.1) 04/17/22 04:32 Nucleated RBC % (auto) 0 % 04/17/22 04:32 Nucleated RBCs # 0.0 /100WBC 04/17/22 04:32 Sodium 138 mmol/L (136-145) 04/17/22 04:32 Potassium 3.7 mmol/L (3.5-5.1) 04/17/22 04:32 Chloride 105 mmol/L (98-107) 04/17/22 04:32 Carbon Dioxide 24 mmol/L (22-29) 04/17/22 04:32 Anion Gap 12.7 (5-19) 04/17/22 04:32 BUN 20 mg/dL (8-23) 04/17/22 04:32 Creatinine 0.6 mg/dL (0.5-0.9) 04/17/22 04:32 GFR Calculation Not Reportable 04/17/22 04:32 Glucose 82 mg/dL (65-115) 04/17/22 04:32 Calculated Osmolality 288 mOsm/kg (285-295) 04/17/22 04:32 Lactic Acid 1.0 mmol/L (0.5-2.2) 04/14/22 17:22 Calcium 8.5 mg/dL (8.5-10.5) 04/17/22 04:32 Total Bilirubin 0.3 mg/dL (0.15-1.2) 04/17/22 04:32 AST 14 U/L (0-32) 04/17/22 04:32 ALT 9 U/L (0-33) 04/17/22 04:32 Alkaline Phosphatase 86 U/L (35-105) 04/17/22 04:32 Troponin T Baseline 20 ng/L (0-10) H 04/14/22 17:22 Troponin T 120 Minute 22.00 ng/L (0-10) H 04/14/22 19:16 Delta Troponin T 2.00 ABS# (0-10) 04/14/22 19:16 Troponin T Hi Sens 6Hr 30.54 ng/L (0-10) H 04/14/22 23:34 Troponin T Hi Sens 6Hr Delta 10.54 ng/L (0-12) 04/14/22 23:34 Total Protein 6.3 g/dL (6.6-8.7) L 04/17/22 04:32 Albumin 3.7 g/dL (3.5-5.2) 04/17/22 04:32 Globulin 2.6 g/dL (1.3-4.6) 04/17/22 04:32 Triglycerides 191 mg/dL (0-150) H 04/16/22 05:31 Cholesterol 284 mg/dL (0-200) H 04/16/22 05:31 LDL Cholesterol, Calc 202 mg/dL (50-129) H 04/16/22 05:31 HDL Cholesterol 44 mg/dL (60-100) L 04/16/22 05:31 LDL/HDL Ratio 4.59 RATIO (0.00-3.22) H 04/16/22 05:31 Cholesterol/HDL Ratio 6.45 mg/dL (0.0-4.40) H 04/16/22 05:31 Lipase 21 U/L (13-60) 04/14/22 17:22 Urine Color Yellow (Yellow) 04/14/22 19:00 Urine Appearance Clear (CLEAR) 04/14/22 19:00 Urine pH 5 (5-7) 04/14/22 19:00 Ur Specific [place] 1.020 (1.005-1.030) 04/14/22 19:00 Urine Protein Neg (Negative) 04/14/22 19:00 Urine Glucose (UA) Norm (Normal) 04/14/22 19:00 Urine Ketones Negative (Negative) 04/14/22 19:00 Urine Blood Neg (Negative) 04/14/22 19:00 Urine Nitrate Negative (Negative) 04/14/22 19:00 Urine Bilirubin Neg (Negative) 04/14/22 19:00 Urine Urobilinogen Norm mg/dL (Negative) 04/14/22 19:00 Ur Leukocyte Esterase Negative (Negative) 04/14/22 19:00 Vitals Last Vital Signs Temp 98.4 F 04/17/22 04:00 Pulse 75 04/17/22 06:00 Resp 15 04/17/22 04:00 BP 111/54 04/17/22 04:00 Pulse Ox 95 04/17/22 04:00 O2 Del Method 04/17/22 04:00 Discharge Plan Discharge Patient Disposition: Home Condition: Stable Prescriptions: New clopidogrel 75 mg Tablet 75 mg PO DAILY Qty: 90 3RF lisinopril 2.5 mg tablet 2.5 mg PO DAILY Qty: 30 4RF Rx Instructions: Hold if blood pressure below 90mmhg aspirin 81 mg Tablet,Chewable 81 mg PO DAILY Qty: 60 2RF atorvastatin 40 mg Tablet 40 mg PO BEDTIME Qty: 60 3RF Continued bupropion HCl 300 mg tablet extended release 24 hr 300 mg PO DAILY Discharge Orders: Discharge Order (Routine); Ordered 04/17/22 Ordered By: Patrizia Lo Referrals: Melissa Aldridge FNP [Nurse Practitioner] - 04/25/22 11:30 am (You have a post procedure followup with ANSON Carroll at [facility] on April 25 at 11:30am. Any changes or questions, please give them a call. Thank You) Citlali Elizabeth DO [Primary Care Provider] - 04/25/22 10:00 am (You have a hospital followup with Dr. Elizabeth on April 25 at 10:00am Any changes or questions, please give them a call. Thank you) Patient Instructions: Bupropion (By mouth) (Zyban, Wellbutrin XL, Wellbutrin SR, Wellbutrin), Opioid Safety Discharge Attestations Time Spent in Discharge Care*: less than 30 min Quality Metrics Clinical Quality Measures [ No reported AMI, CVA or VTE this stay] Coding Level of Care Code Acute Chg FW DC note Diagnoses Chest pain R07.9 Abnormal nuclear stress test R94.39 CAD (coronary artery disease) I25.10 HTN (hypertension) I10 Family history of ischemic heart disease and other diseases of the circulatory system Z82.49
[2022-04-17 11:09] VITALS: PULSE 80; RESP 19; O2SAT 94
[2022-04-17 11:12] VITALS: PULSE 80; RESP 19; O2SAT 94
[2022-04-17 12:00] VITALS: BP 135/58; RESP 23; TEMP 36.7
--- NOTE | 2022-04-17 16:31 | PC.NURSE ---
Patient was discharged at 1552 with complete discharge instructions and information about appointment follow ups. Patient verbalized understanding about instructions not to lift more than 5lb with the right arm. She was discharged via wheelchair to the main entrance. All medications were sent to [facility].
== END 2022-04-17 15:52 | disposition home or self-care (01) ==
LOC: ER 20:33 → MEDSURG 21:15 → CSU 04-16 17:15
PROVIDERS: Internal Medicine Cardiovascular Disease; Admitting Provider Internal Medicine; Emergency Provider Emergency Medicine; PCP Family Medicine; Visit Provider Internal Medicine
DX: R07.89 Other chest pain (principal); R94.39 Abnormal result of other cardiovascular function study; I25.10 Atherosclerotic heart disease of native coronary artery without angina pectoris; Z82.49 Family history of ischemic heart disease and other diseases of the circulatory system; I65.21 Occlusion and stenosis of right carotid artery; Z87.891 Personal history of nicotine dependence; I11.9 Hypertensive heart disease without heart failure; I51.7 Cardiomegaly; N28.1 Cyst of kidney, acquired
CPT/HCPCS: 36415; 71045; 74177; 76705; 78452; 80053; 80061; 81003; 83605; 83690; 84484; 85025; 93005; 93017; 93306; 93454; 96360; 96361; 96372; 96374; 96375; 99152; 99153; 99285; A9500; C1725; C1769; C1874; C1887; C1894; C9600; G0378; J1170; J1200; J1644; J1650; J2250; J2405; J2785; J3010; J3490; J7030; Q9967

== ENCOUNTER → 2022-04-25 12:30 | Outpatient (BNVA) | payer MEDICARE, SELFPAY | PROVIDERS: PCP Family Medicine; Visit Provider Nurse Practitioner Family | DX: I25.10 Atherosclerotic heart disease of native coronary artery without angina pectoris (principal) | CPT/HCPCS: 36415; 80048; 99214 ==

== ENCOUNTER → 2022-06-10 13:55 | Outpatient (BNVA) | payer MEDICARE, SELFPAY | PROVIDERS: PCP Family Medicine; Visit Provider Internal Medicine Cardiovascular Disease | DX: I25.10 Atherosclerotic heart disease of native coronary artery without angina pectoris (principal); I10 Essential (primary) hypertension; Z82.49 Family history of ischemic heart disease and other diseases of the circulatory system | CPT/HCPCS: 99214; Q3014 ==

== ENCOUNTER 2022-09-18 12:15 | Emergency (ER) | payer MEDICARE, SELFPAY ==
[2022-09-18 13:07] VITALS: BP 188/84; PULSE 82; RESP 16; TEMP 36.7; O2SAT 98
--- NOTE | 2022-09-18 13:59 | ED_ITS ---
HPI - Fall General: Chief Complaint: Back Pain/Injury Stated Complaint: back injury Time Seen by Provider: 09/18/22 13:21 Source: patient Mode of arrival: ambulatory Limitations: no limitations History of Present Illness: Patient is a nice 77-year-old female who presents to ED today with a complaint of right posterior rib/back pain that began approximately 6 days ago after she fell from a stepstool outside while planting marcus. Patient states she fell directly on some type of large metal bucket that she was using as a flower potter. Patient states she noticed pain immediately but thought it would go away on its own however over the past 6 days pain has not improved and she states she cannot stand it any longer. She states she also became concerned when pain seems to radiate around into the front. She reports pain with inhalation but does not feel dyspneic at rest. Denies hematuria. Denies lightheadedness, dizziness, passing out episodes. MD complaint: fall Onset (ago): day(s) Fall from: from height (distance) (2-3 ft) Fall witnessed: no Place fall occurred: home Loss of consciousness: None Prolonged down time: no Symptoms prior to fall: none Context: tripped/slipped Location of injury: chest and back Associated symptoms-after fall: Reports abdominal pain and chest pain (R posterior rib pain); Denies headache(s), lightheadedness or neck pain Review of Systems Const: Denies: fever(s), chills, body aches, fatigue or malaise Eyes: Denies: change in vision or blurry vision Card: Reports: chest pain (R posterior rib pain); Denies: palpitations, irregular heart rhythm, edema, swelling of feet/ankles, lightheadedness, syncope, pre-syncope, dyspnea on exertion, orthopnea, leg pain with exertion or acrocyanosis Resp: Reports: pain on inspiration; Denies: dyspnea, productive cough, non-productive cough, wheezing, hemoptysis or chest congestion GI: Reports: abdominal pain; Denies: nausea, vomiting, diarrhea or change in bowel habits : Reports: flank pain (R); Denies: difficulty voiding, dysuria, urinary frequency, urinary urgency or urinary hesitancy Musc: Denies: neck pain, back pain, extremity pain or joint pain Skin/Breast: Denies: rash Neuro: Denies: headache(s), numbness in extremities, weakness in extremities, sensory changes or dizziness PFSH ED PFSH: Medical History Abnormal nuclear stress test CAD (coronary artery disease) Chest pain Dyslipidemia Epigastric pain Family history of ischemic heart disease and other diseases of the circulatory system HTN (hypertension) Positive cardiac stress test Surgical History History of History of surgery on wrist Family History Other CAD (coronary artery disease) Social History Smoking and tobacco status: never smoked Alcohol intake: current Alcohol intake frequency: holidays/special occasions only Alcohol type: beer Physical Exam Const: COMMON NORMALS: no acute distress, average body habitus, patient oriented x3, no limitations, healthy appearing, alert and well nourished GENERAL APPEARANCE: cooperative ORIENTATION/CONSCIOUSNESS: Yes awake, Yes oriented to person, Yes oriented to place and Yes oriented to time HENMT: COMMON NORMALS: normocephalic, atraumatic and TM's normal bilaterally HEAD & SCALP: normal to inspection, normocephalic and atraumatic; no Buckner's sign, no hematoma and no raccoon eyes FACE & SINUS: normal facial exam TYMPANIC MEMBRANE: TM's normal bilaterally MOUTH: other (no intraoral injuries noted) Eye: COMMON NORMALS: Equal, round and reactive pupils present and EOMs intact bilaterally GENERAL EYE: appearance normal, both eyes and all related structures and normal light reflex PUPIL: Yes Equal, round and reactive pupils present DIRECT OPHTHALMOSCOPY: Yes normal light reflex Neck/C-Spine: COMMON NORMALS: full ROM GENERAL: Yes normal visual inspection CERVICAL SPINE: Yes cervical ROM normal, No pain with cervical ROM, No Cervical spine tenderness, No step off deformity and No Paracervical muscle tenderness Chest: OTHER: TTP R lower posterior chest wall ecchymosis/tenderness Resp: COMMON NORMALS: normal respiratory effort and clear to auscultation bilaterally AUSCULTATION: clear to auscultation bilaterally Cardio: COMMON NORMALS: regular rate and regular rhythm RATE: regular rate RHYTHM: regular rhythm GI: COMMON NORMALS: Normal to inspection, nondistended, normoactive bowel sounds present, Soft to palpation, No hepatosplenomegaly present and no masses INSPECTION: Yes normal to inspection and No abdominal wall ecchymosis AUSCULTATION: Yes normoactive bowel sounds PALPATION: Yes Soft to palpation, Yes Tenderness to palpation present (GI) (RUQ), No Guarding due to palpation present (GI), No Rigid due to palpation and Yes No hepatosplenomegaly present Back/Pelvis: COMMON NORMALS: thoracic and lumbar spine normal to inspection, no thoracic nor lumbar tenderness and thoraco-lumbar ROM normal BACK IMAGE (FEMALE): 1. healing ecchymosis Extremity: COMMON NORMALS: normal to inspection and full ROM GENERAL: Yes normal exam except as noted Neuro: TRISH COMA SCALE: document GCS findings Trish coma scale eye opening: Spontaneous [place] coma scale verbal response: Orientated Trish coma scale motor response: Obey commands [place] coma scale total score: 15 COMMON NORMALS: patient oriented x3, CN's II-XII intact bilaterally, moves all extremities, no focal motor deficits, no sensory deficits noted and gait normal SENSORIUM/ORIENTATION: Yes alert, Yes oriented to person, Yes oriented to place and Yes oriented to time SPEECH: speech normal GAIT: Yes Normal gait present Skin: COMMON NORMALS: no rashes or lesions noted GENERAL SKIN EXAM: no rashes or lesions noted and ecchymosis (R back/posterior chest wall) TRAUMA: no lacerations or abrasions Course 2 Vital Signs: Vital signs: Vital Signs Temperature 98.0 F 09/18/22 13:07 Pulse Rate 82 09/18/22 13:07 Respiratory Rate 14 09/18/22 15:24 Blood Pressure 188/84 09/18/22 13:07 Pulse Oximetry 98 09/18/22 13:07 Oxygen Delivery Me thod Nasal Cannula 09/18/22 13:07 MDM - Fall Medical Decision Making CT chest/ab/pelvis showing no acute traumatic findings. Patient will be provided a prescription for pain medications and discharged home with return to ED precautions. She can follow-up with primary care in 1 to 2 weeks if pain is still not improving. Lab Data Radiology Impressions Chest/Abdomen/Pelvis CT 09/18/22 13:59 IMPRESSION:0 No acute traumatic findings in the chest abdomen pelvis Discharge Plan Discharge Patient Disposition: Home Clinical Impression: Contusion of rib on right side Qualifiers: Encounter type: initial encounter Qualified Code(s): S20.211A - Contusion of right front wall of thorax, initial encounter Condition: Stable Prescriptions: New hydrocodone-acetaminophen 5-325 mg tablet 1 tab PO Q6H PRN (Reason: pain) Qty: 14 0RF No Action nitroglycerin 0.4 mg tablet, sublingual 0.4 mg sublingual Q5M PRN (Reason: chest pain) Qty: 30 6RF Rx Instructions: do not exceed 3 doses per episode amlodipine 5 mg tablet 7.5 mg PO DAILY Qty: 135 3RF bupropion HCl 300 mg tablet extended release 24 hr 300 mg PO DAILY atorvastatin 40 mg Tablet 40 mg PO BEDTIME Qty: 60 3RF clopidogrel 75 mg Tablet 75 mg PO DAILY Qty: 90 3RF aspirin 81 mg Tablet,Chewable 81 mg PO DAILY Qty: 60 2RF Discharge Orders: Discharge ED (Routine); Ordered 09/18/22 Ordered By: Berta Barker Referrals: Carlo Leach DO [Primary Care Provider] - Patient Instructions: Rib Contusion (ED), Opioid Safety, Pain Management Coding Level of Care Code ED Children[facility] Nursery Assistant for Trent Velazquez
--- NOTE | 2022-09-18 13:59 | CT_ITS ---
WS: [id number] CT CHEST, ABDOMEN, AND PELVIS TECHNIQUE: Noncontrast CT of the chest, abdomen, and pelvis with coronal and sagittal reformatted bakari ges. CLINICAL INFORMATION: fall, R rib/chest/ab trauma COMPARISON: None. DLP: 467.[address] scans at [facility] use at least one of these dose optimization techniques: automated e xposure control; mA and/or kV adjustment per patient size (includes targeted exams where dose is matc hed to clinical indication); or iterative reconstruction. CT CHEST: Lungs are well aerated. No acute pulmonary infiltrates. No focal pneumonia or pleural fluid. No pneum othorax. Aortic calcification. Normal caliber thoracic aorta. Coronary calcification. No axillary lym phadenopathy. No mediastinal or hilar lymphadenopathy. Mild thoracic curve. No evidence of mediastina l hematoma. Normal visualized thoracic spine. CT ABDOMEN AND PELVIS: Hepatomegaly. Cholelithiasis. Normal noncontrast spleen. Noncontrast pancreas appears normal. Adrenal glands are normal. Normal caliber abdominal aorta. Dense vascular calcification. Adrenal glands are normal. RIGHT renal cyst. No hydronephrosis. No free fluid in the abdomen or pelvis. Bladder cystocele. CT/[place] [id number] IMPRESSION:0 No acute traumatic findings in the chest abdomen pelvis
[2022-09-18 15:24] VITALS: RESP 14
[2022-09-18] MEDS: ondansetron 2 mg/ML SDV 2 mL 4 MG IM (15:24)
[2022-09-18] MEDS: morphine 4 mg/mL SDV 1 mL IM (15:24)
== END 2022-09-18 15:46 | disposition home or self-care (01) ==
PROVIDERS: Emergency Provider Physician Assistant; PCP Family Medicine
DX: S20.211A Contusion of right front wall of thorax, initial encounter (principal); Z79.82 Long term (current) use of aspirin; Z79.02 Long term (current) use of antithrombotics/antiplatelets; I25.10 Atherosclerotic heart disease of native coronary artery without angina pectoris; E78.5 Hyperlipidemia, unspecified; I10 Essential (primary) hypertension; W11.XXXA Fall on and from ladder, initial encounter
CPT/HCPCS: 71250; 74176; 96372; 99284; J2270; J2405

== ENCOUNTER → 2022-12-15 14:12 | Outpatient (BNVA) | payer MEDICARE, SELFPAY | PROVIDERS: PCP Family Medicine; Visit Provider Internal Medicine Cardiovascular Disease | DX: I25.10 Atherosclerotic heart disease of native coronary artery without angina pectoris (principal); E78.5 Hyperlipidemia, unspecified; I10 Essential (primary) hypertension; Z82.49 Family history of ischemic heart disease and other diseases of the circulatory system | CPT/HCPCS: 99214 ==

== ENCOUNTER → 2023-01-08 09:10 | Outpatient (BNVA) | payer MEDICARE, SELFPAY | PROVIDERS: PCP Family Medicine; Visit Provider Internal Medicine Cardiovascular Disease | DX: E78.5 Hyperlipidemia, unspecified (principal); I10 Essential (primary) hypertension; I25.10 Atherosclerotic heart disease of native coronary artery without angina pectoris | CPT/HCPCS: 80053; 80061; 83721 ==

== ENCOUNTER → 2024-03-21 14:27 | Outpatient (BNVA) | payer MEDICARE, MEDICAID, SELFPAY | PROVIDERS: PCP Family Medicine; Visit Provider Internal Medicine | DX: I25.10 Atherosclerotic heart disease of native coronary artery without angina pectoris (principal); I10 Essential (primary) hypertension; E78.5 Hyperlipidemia, unspecified; Z82.49 Family history of ischemic heart disease and other diseases of the circulatory system; R07.89 Other chest pain; Z87.891 Personal history of nicotine dependence | CPT/HCPCS: 99214 ==

== ENCOUNTER 2024-04-18 09:14 | Outpatient (CLI) | payer MEDICARE, MEDICAID, SELFPAY ==
--- NOTE | 2024-04-18 | ECG_ITS ---
[facility] Date: 2024-04-18 Pat Name: Stella Quarles Department: Room: Gender: Female Administrative Liaison: : 1945 Requested By: Farhan Diana Order Number: [id number] Pili MD: Farhan Diana M.D. Interpretive Statements LEXISCAN SESTAMIBI STRESS TEST Procedure: At the baseline, the blood pressure was 158/79 mmHg with a heart rate of 74 bpm. The electrocardiogram showed normal sinus rhythm, normal axis with normal ST and T's. The Lexiscan was infused over a period of 20 seconds. A total of 0.4 mg of Lexiscan was infused. The stress phase was continued for a total of 5 minutes. Heart rate was at the end of stress phase was 82 bpm and a blood pressure of 149/63 mmHg. The EKG at the peak infusion revealed normal sinus rhythm with no significant ST-T wave changes. Sestamibi was injected 20 seconds after the Lexiscan infusion. Blood pressure at the end of recovery phase was 145/63 mmHg with a heart rate of 83 bpm. Conclusion: 1. Normal EKG response to Lexiscan infusion 2. No Lexiscan induced chest pain or cardiac arrhythmia. 3. Normal blood pressure and heart rate response. 4. Sestamibi/sestamibi perfusion scan pending; see separate report. Electronically Signed On 05-11-2024 19:52:46 HOTEL CUSTODIAN by Farhan Diana M.D. [email or web address]
--- NOTE | 2024-04-18 09:50 | NMCV_ITS ---
NM mary beth perf SPECT r/s* [id number] Stella Quarles Age: 78 Gender: F : 1945 Exam Date: 04/18/2024 10:43 Ordering Phys: Farhan Diana M.D ([email or web address]) Technologist: TOMASZ Bourgeois Exam Location: [facility] Indications: cp STRESS TEST [facility] IMAGE PROTOCOL Rest/Stress 1 Lexiscan Day Radiopharmaceutical Dose (mCi) Administration Site Administered by Rest: Tc-99m 11 IV TOMASZ Ramirez Sestamibi Stress:Tc-99m 32.4 IV TOMASZ Jenkins Sestamibi Rest: 18-Apr-2024 60 Discovery 630 Stress: 18-Apr-2024 30 Discovery 630 0.4mg Lexiscan. Supine position only as patient was unable to lay prone. SPECT RESULTS Technical Quality: Good Raw Data Analysis: Normal Image Corrections: No attenuation or motion correction applied Summed Stress Score: 0 Summed Rest Score: 0 Summed Difference Score: 0 PERFUSION FINDINGS Uniform myocardial tracer uptake with no significant Perfusion normalities FUNCTIONAL RESULTS (calculated via Gated SPECT) Stress Image LV EF (%): 86 Stress EDV (mL):42 TID: 1 Stress ESV (mL):6 FUNCTIONAL FINDINGS: Segmental wall motion analysis revealing no gross wall motion abnormalities IMPRESSIONS 1. Myocardial perfusion imaging revealing uniform myocardial tracer uptake with no significant perfusion abnormalities 2. Normal LV ejection fraction of 86% 3. LV wall motion analysis revealing no gross wall motion abnormalities. 4. Normal LV volume Low probability for coronary ischemia, based on the above findings Dr Char Mejia MD FACC (Electronically Signed) Final Date: 18 April 2024 23:25 S
[2024-04-18] MEDS: regadenoson 0.4 Mg/5 ml Syringe IVP (11:33)
[2024-04-18 11:40] VITALS: BP 145/63; PULSE 83
== END 2024-04-18 09:15 | disposition home or self-care (01) ==
PROVIDERS: PCP Family Medicine; Visit Provider Internal Medicine
DX: R07.9 Chest pain, unspecified (principal); R06.02 Shortness of breath
CPT/HCPCS: 36415; 78452; 93017; 96374; A9500; J2785

== ENCOUNTER 2025-03-06 09:25 | Outpatient (CLI) | payer MEDICARE, MEDICAID, SELFPAY ==
--- NOTE | 2025-03-06 09:33 | NM_ITS ---
WS: [id number] NUCLEAR MEDICINE HIDA SCAN WITH GALLBLADDER EJECTION FRACTION HISTORY: ABDOMINAL PAIN COMPARISON: Gallbladder ultrasound 04/15/2022 TECHNIQUE: The patient was intravenously injected with 7.9 mCi of TC99m Mebrofenin. Immediate imaging over the right upper quadrant was followed by 5 minute image and additional images for a total of 60 minutes. Heterogeneous appearance both lobes of the liver with heterogeneous distribution of uptake. Activity identified in the gallbladder at 50 minutes and well distended by 60 minutes. Activity in the proximal small bowel was seen by 40 minutes. Good washout of the radiotracer from the liver by 60 minutes. The patient then drank 8 ounces of Ensure Plus. Ejection fraction at 60 minutes was 95%. Normal GB ejection fraction is 35-75%. Post fatty meal symptoms: None. NM/NM hepatobiliary w phar* [id number] IMPRESSION: 1. Normal HIDA scan. 2. Normal gallbladder ejection fraction. 3. Heterogeneous distribution of radionuclide throughout the liver. Recommend follow-up ultrasound evaluation of the liver. No recent RIGHT upper quadrant ul trasound has been performed. Liver parenchyma needs to be evaluated.
== END 2025-03-06 09:26 | disposition home or self-care (01) ==
LOC: RAD 09:26
PROVIDERS: PCP Family Medicine; Visit Provider Registered Nurse
DX: R10.11 Right upper quadrant pain (principal); R93.2 Abnormal findings on diagnostic imaging of liver and biliary tract
CPT/HCPCS: 78227; A9537